=== PATIENT | female | born 1990 | race Caucasian/White ===

== ENCOUNTER 2017-06-03 16:03 | Emergency (ER) | payer BC, MEDICAID ==
[~2017-06-03] VITALS: Ht 170.2 cm; Wt 57.7 kg
--- NOTE | 2017-06-03 16:46 | REP ---
SOFT TISSUES NECK: AP and lateral views of the soft tissues of the neck are performed. There is a thin linear metallic object in the soft tissues of the inferior left neck. This object measures about 8 mm in length. It is at about the T1 level. Visualized osseous structures are unremarkable. The airway is widely patent. There is no prevertebral soft tissue swelling. The epiglottis is normal. IMPRESSION: Thin linear metallic object in the soft tissues of the inferior left neck. Signed by Luis Marte MD 06/03/2017 07:24 P
[2017-06-03] MEDS ORDERED: ISOVUE-370 76% 100ML VIAL (Q9967) As Ordered ONE (17:30)
--- NOTE | 2017-06-03 18:50 | REPUSA ---
CT of the soft tissues of the neck with contrast Clinical history: foreign body. Technique: Multiple axial CT images were obtained from the base of the skull to the upper thorax afte r administration of nonionic intravenous contrast. Coronal and sagittal reconstructions were also obt ained. Findings: The visualized paranasal sinuses are clear. The pterygopalatine fossa, pterygoid plates and pterygoid muscles are unremarkable. The mucosa of the naso- and oropharynx appears unremarkable. The hypopharynx and larynx show no pathology. The visualized osseous structures are intact. The airway i s patent. No focal enhancing mass is appreciated. There is no evidence of lymphadenopathy. The thyroi d gland appears unremarkable. The superficial soft tissues are unremarkable. The vascular structures demonstrate normal caliber and contour. Impression: Unremarkable CT examination of the soft tissues of the neck. There is no evidence of a ra diopaque foreign body.
--- NOTE | 2017-06-03 19:01 | ED PDOC ---
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 FB SEEN IN LEFT LATERAL NECK ON CT SCAN OF THIS PT. SARA ROBBINS PA-C Jun 03, 2017 19:01
[2017-06-03] MEDS ORDERED: CLEO300C2 PO (19:08)
[2017-06-03] MEDS ORDERED: CLINDAMYCIN 150 MG CAP PO ONE (19:15)
[2017-06-03 19:21] VITALS: BP 124/78
== END 2017-06-03 19:22 | disposition home or self-care (01) ==
LOC: M ED 16:03
DX: S10.95XA Superficial foreign body of unspecified part of neck, initial encounter (principal); W46.0XXA Contact with hypodermic needle, initial encounter; Y92.89 Other specified places as the place of occurrence of the external cause; Y93.89 Activity, other specified; Y99.8 Other external cause status; F11.129 Opioid abuse with intoxication, unspecified
CPT/HCPCS: 70360; 70491; 99283; Q9967

== ENCOUNTER 2017-09-09 00:57 | Emergency (ER) | payer MEDICAID | END 2017-09-09 01:08 | disposition home or self-care (01) | LOC: M ED 01:08 | DX: F19.10 Other psychoactive substance abuse, uncomplicated (principal); F17.210 Nicotine dependence, cigarettes, uncomplicated | CPT/HCPCS: 99284 ==

== ENCOUNTER 2019-03-12 17:27 | Inpatient (IN) | payer MEDICAID, OTHER, SELFPAY ==
[~2019-03-12] VITALS: Ht 170.2 cm; Wt 60.0 kg
[~2019-03-12 17:27] MED LIST: CLEO300C2 PO; NALT50TA4 PO
[2019-03-12] MEDS ORDERED: ACETAMINOPHEN TAB 650MG DOSE (2X325MG) PO ONE (18:30)
[2019-03-12 19:26] LABS: BASO % 0.2 % (0.0-1.0); HEMATOCRIT 33.5 % (36.0-47.0); HEMOGLOBIN 11.5 g/dl (12.0-15.5); LYMPH # 0.8 10^3/uL (1.5-6.5); MEAN CORPUSCULAR HEMOGLOBIN 31.3 pg (27.0-33.0); MEAN CORPUSCULAR HGB CONC 34.3 g/dl (32.0-36.5); MEAN CORPUSCULAR VOLUME 91.3 fl (80.0-96.0); MONO % 11.4 % (0.0-5.0); NEUTROPHILS # 6.7 10^3/uL (1.8-7.7); NEUTROPHILS % 78.9 % (36.0-66.0); PLATELET COUNT, AUTOMATED 170 10^3/uL (150-450); RED BLOOD COUNT 3.67 10^6/uL (4.00-5.40); WHITE BLOOD COUNT 8.5 10^3/uL (4.0-10.0)
[2019-03-12] MEDS ORDERED: KETOROLAC 30 MG/ML VIAL (J1885) IV ONE (19:45)
[2019-03-12] MEDS ORDERED: NS IV ONE (19:45)
[2019-03-12] MEDS ORDERED: DILUENT IV ONE (19:45)
[2019-03-12 19:46] LABS: HCG, SERUM QUALITATIVE NEGATIVE (NEGATIVE)
[2019-03-12 19:47] LABS: ALT/SGPT 41 U/L (12-78); BILIRUBIN,DIRECT 0.2 MG/DL (0.0-0.2); BILIRUBIN,TOTAL 0.4 MG/DL (0.2-1.0); BLOOD UREA NITROGEN 9 MG/DL (7-18); CALCIUM LEVEL 8.6 MG/DL (8.5-10.1); CARBON DIOXIDE LEVEL 25 MEQ/L (21-32); CHLORIDE LEVEL 98 MEQ/L (98-107); CREATININE FOR GFR 0.75 MG/DL (0.55-1.30); GLOMERULAR FILTRATION RATE > 60.0 (>60); GLUCOSE, FASTING 116 MG/DL (70-100); POTASSIUM SERUM 3.9 MEQ/L (3.5-5.1); SODIUM LEVEL 131 MEQ/L (136-145); TOTAL PROTEIN 6.5 GM/DL (6.4-8.2)
[2019-03-12 19:48] LABS: ALBUMIN 2.9 GM/DL (3.2-5.2); LIPASE 131 U/L (73-393)
[2019-03-12] MEDS ORDERED: ISOVUE-370 76% 100ML VIAL (Q9967) As Ordered ONE (20:41)
--- NOTE | 2019-03-12 21:19 | REP ---
Clinical: Fever. Technique: PA and lateral. Comparison: None. Findings: Mediastinum and cardiac silhouette are normal. Lung sanchez demonstrate coarsened interstitial markings with superimposed scattered bilateral alveolar infiltrates. No effusion. No pneumothorax. Skeletal structures intact. Impression: Scattered alveolar infiltrates are suspected. Electronically Signed by Fabio Crum MD 03/12/2019 09:10 P
[2019-03-12] MEDS: PIPERACILLIN/TAZOBACTAM SOD 3.375 GM in D5W MINI-BAG PLUS 50 ML IV ONE (22:00)
[2019-03-12] MEDS ORDERED: VANCOMYCIN HCL 1,000 MG, VIAL MATE ADAPTER 1 EACH in D5W 250 ML IV ONE (22:00)
--- NOTE | 2019-03-12 22:17 | ECGEPIP ---
[facility] - ED Test Date: 2019-03-12 Pat Name: KARRIE BLACK Department: Room: - Gender: Female Room Service Supervisor: aleida : 1990 Requested By: MUNIRA Wagner Order Number: [id number] Reading MD: Rolando Sandhu Measurements Intervals [place] Rate: 110 P: 34 VA: 120 QRS: 97 QRSD: 94 T: 45 QT: 291 QTc: 395 Interpretive Statements SINUS TACHYCARDIA RIGHT AXIS DEVIATION INCOMPLETE RIGHT BUNDLE BRANCH BLOCK NO PRIORS FOR COMPARISON Electronically Signed on 03-12-2019 22:16:58 EDT by Rolando Sandhu
--- NOTE | 2019-03-12 23:02 | REPVR ---
EXAM: CT Angiography Chest With Contrast EXAM DATE/TIME: 03/12/2019 10:00 PM CLINICAL HISTORY: 28 years old, female; Chest pain; Additional info: Chest pain, fever TECHNIQUE: Imaging protocol: Axial computed tomographic angiography images of the chest with intravenous contrast using CT angiography protocol. Coronal and sagittal reformatted images were created and reviewed. 3D rendering: MIP reconstructed images were created and reviewed. Radiation optimization: All CT scans at this facility use at least one of these dose optimization techniques: automated exposure control; mA and/or kV adjustment per patient size (includes targeted exams where dose is matched to clinical indication); or iterative reconstruction. Contrast material: ISOVUE 370; Contrast volume: 75 ml; Contrast route: IV; COMPARISON: CR Chest, 2 view PA, Lat 03/12/2019 8:12 PM FINDINGS: Pulmonary arteries: The main pulmonary artery measures 27 mm. No pulmonary embolism is identified. Aorta: The ascending thoracic aorta measures 29 mm. Lungs: Interstitial prominence and minimal fibro-atelectatic change with patchy areas of infiltrate and consolidation. Pleural space: Mild right pleural effusion. Heart: Unremarkable. No cardiomegaly. No pericardial effusion. Liver: Probable hepatomegaly. Lymph nodes: Unremarkable. No enlarged lymph nodes. Bones/joints: Unremarkable. No acute fracture. Soft tissues: Unremarkable. IMPRESSION: 1. Interstitial prominence with minimal fibro-atelectatic change and patchy areas of infiltrate and focal consolidation consistent with pneumonia. 2. Mild right pleural effusion. 3. Probable hepatomegaly. 4. Otherwise negative CTA chest. No pulmonary embolism is identified. Electronically signed by: Brayden Montoya On 03/12/2019 23:02:03 PM
[2019-03-12 23:38] LABS: CPK CREATINE PHOSPHOKINASE 41 U/L (26-192); TROPONIN I < 0.02 NG/ML (< 0.10)
--- NOTE | 2019-03-12 23:41 | HPEPDOC ---
[facility] Medical History & Physical Date of Admission Mar 12, 2019 Date of Service: Mar 12, 2019 History and Physical PCP: None CHIEF COMPLAINT: Fevers HISTORY OF PRESENT ILLNESS: Patient is a 28-year-old female supplemented IV drug abuser and having fevers and chest pressure and pain for the last several days associated with some cough. Generally she is seeing friends of her when they look like this and began to get like this. She doesn't abuse ethanol 204. Her last IV drug injection was 70 and was more active and very active in recent weeks. Otherwise patient denies weight loss, hair loss, headache, visual changes, nausea, vomiting, diarrhea, abdominal pain, muscle aches, worsening ar thritis, change in mood PAST MEDICAL HISTORY: 1. IV drug abuse 2. Polysubstance abuse. 3. Tobacco abuse. HOME MEDICATIONS: Please see below. ALLERGIES: Please see below PAST SURGICAL HISTORY: 1. 4. 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 ETOH: Denies, Illicit drug use: Regular injections and pills previously attempted rehabilitat ion was clean for 6 months inpatient in 2 months outpatient, Tattoos done unprofessionally: Denies, CODE STATUS: Full code FAMILY HISTORY:Reviewed and noncontributory REVIEW OF SYSTEMS: 10 systems reviewed and negative other than HPI PHYSICAL EXAMINATION: VITAL SIGNS: Temperature 103.9, pulse 99, respiratory rate 16, blood pressure 90 a 57, pulse oximetry 95% on room air. GENERAL: Pleasant slim femalesitting up in bed awake alert oriented speaking in complete sentences no acute distress HEENT: Dry mucous membranes no elevation and CVP CARDIOVASCULAR: S1 S2 regular soft systolic murmur appreciated she is mildly tachycardic at the time of my exam. RESPIRATORY: Clear to auscultation bilaterally. ABDOMINAL: Bowel sounds present abdomen soft and nontender EXTREMITIES: No clubbing cyanosis or edema, numerous track mcmanus in injection sites in the left before meals right before meals left and right dorsum of hands and forearms none in the neck or feet NEUROLOGICAL: Spontaneously moves all 4 extremities cranial 2 through 12 grossly intact no gross focal deficits appreciated PSYCHOLOGICAL: Appropriate, flat LABORATORY DATA: See below. MICROBIOLOGY: Please see below. IMAGING: Chest x-ray:Scattered alveolar infiltrates are suspected. CT angiogram:1. Interstitial prominence with minimal fibro-atelectatic change and patchy areas of infiltrate and focal consolidation consistent with pneumonia. 2. Mild right pleural effusion. 3. Probable hepatomegaly. 4. Otherwise negative CTA chest. No pulmonary embolism is identified. ASSESSMENT & PLAN: This is a 28-year-old female with fevers and possible right- sided pneumonia questionable endocarditis. PROBLEMS: 1. Pneumonia: Patient has fever cough chest pain and imaging findings consistent with this. I'll provide her with vancomycin and ceftriaxone. My suspicion for atypicals as less, a provider was concerned for possible infective endocarditis with her history of ongoing IV drug abuse and as such a stat echocardiogram was checked. I do not have any official read at this time there was concern that the tricuspid but may have some . vegetation. Vancomycin and ceftriaxone should be an appropriate empiric coverage regimen as well. 3 blood cultures have been drawn. I will check a pro-calcitonin morning labs patient should likely have repeat blood culture checked tomorrow. If echocardiogram is positive could consider inpatient cardiology consultation. 2. Hypovolemic hyponatremia: Patient is very slim looks is clinically dry with gentle IV fluids and recheck in a.m. 3. Abnormal liver function tests: She does have an elevated AST the etiology is not immediately clear we'll trend 4. Anemia: We'll send workup in a.m. labs. 5.Suicidal ideation: After leaving the IV by nursing staff that the patient did express some suicidal ideation shortly thereafter. I'll place her on a one-to-one sitter could consider inpatient psychiatry consultation when medically cleared 6. Polysubstance abuse and IV drug abuse: He is consultation she would benefit from addiction services DVT PROPHYLAXIS: Lovenox DISPOSITION: Admitted to [facility] with remote telemetry inpatient status Vital Signs Vital Signs Date Time Temp Pulse Resp B/P (MAP) Pulse Ox O2 Delivery O2 Flow Rate FiO2 03/12/19 23:22 98.9 03/12/19 23:16 83 16 98 Room Air 03/12/19 23:15 115/73 (87) Laboratory Data Labs 24H Laboratory Tests 2 03/12/19 19:13: Immature Granulocyte % (Auto) 0.5, White Blood Count 8.5, Red Blood Count 3.67L, Hemoglobin 11.5L, Hematocrit 33.5L, Mean Corpuscular Volume 91.3, Mean Corpuscular Hemoglobin 31.3, Mean Corpuscular Hemoglobin Concent 34.3, Red Cell Distribution Width 12.9, Platelet Count 170, Neutrophils (%) (Auto) 78.9H, Lymphocytes (%) (Auto) 9.0L, Monocytes (%) (Auto) 11.4H, Eosinophils (%) (Auto) 0.0, Basophils (%) (Auto) 0.2, Neutrophils # (Auto) 6.7, Lymphocytes # (Auto) 0.8L, Monocytes # (Auto) 1.0H, Eosinophils # (Auto) 0.0, Basophils # (Auto) 0.0, Nucleated Red Blood Cells % (auto) 0.0, Anion Gap 8, Glomerular Filtration Rate > 60.0, Lactic Acid Level 1.5, Calcium Level 8.6, Aspartate Amino Transf (AST/SGOT) 49H, Alanine Aminotransferase (ALT/SGPT) 41, Alkaline Phosphatase 86, Total Bilirubin 0.4, Direct Bilirubin 0.2, C-Reactive Protein, Quantitative 22.20H, Total Protein 6.5, Albumin 2.9L, Albumin/Globulin Ratio 0.81L, Lipase 131, Human Chorionic Gonadotropin, Qual NEGATIVE 03/12/19 20:05: Urine Color YELLOW, Urine Appearance HAZY, Urine pH 6.0, Urine Specific [place] 1.023, Urine Protein 2+H, Urine Glucose (UA) NEGATIVE, Urine Ketones NEGATIVE, Urine Blood NEGATIVE, Urine Nitrite NEGATIVE, Urine Bilirubin NEGATIVE, Urine Urobilinogen 0.2, Urine Leukocyte Esterase NEGATIVE, Urine WBC (Auto) 5H, Urine RBC (Auto) 3, Urine Hyaline Casts (Auto) 0, Urine Bacteria (Auto) NEGATIVE, Urine Squamous Epithelial Cells 2, Urine Mucus (Auto) SMALL, Urine Sperm (Auto) CBC/BMP Laboratory Tests 03/12/19 19:13 Red Blood Count 3.67 L, Mean Corpuscular Volume 91.3, Mean Corpuscular Hemoglobin 31.3, Mean Corpuscular Hemoglobin Concent 34.3, Red Cell Distribution Width 12.9, Neutrophils (%) (Auto) 78.9 H, Lymphocytes (%) (Auto) 9.0 L, Monocytes (%) (Auto) 11.4 H, Eosinophils (%) (Auto) 0.0, Basophils (%) (Auto) 0.2, Neutrophils # (Auto) 6.7, Lymphocytes # (Auto) 0.8 L, Monocytes # (Auto) 1.0 H, Eosinophils # (Auto) 0.0, Basophils # (Auto) 0.0 Microbiology Microbiology 03/12/19 Blood Culture, Received Pending 03/12/19 Blood Culture, Received Pending 03/12/19 Blood Culture, Received Pending 03/12/19 Respiratory Virus Panel (PCR) (NISA) - Final, Complete Home Medications No Active Prescriptions or Reported Meds Allergies Coded Allergies: No Known Allergies (Unverified , 06/03/17) A-FIB/CHADSVASC A-FIB History Current/History of A-Fib/PAF?: No ARIANA CHAUHAN MD Mar 12, 2019 23:41
[2019-03-12 23:48] LABS: ERYTHROCYTE SEDIMENTATION RATE 65 mm/hr (0-20)
[2019-03-13] VITALS (9 sets, daily range): BP systolic 97–132; BP diastolic 53–82
[2019-03-13] MEDS: PIPERACILLIN/TAZOBACTAM SOD 3.375 GM in D5W MINI-BAG PLUS 50 ML IV ONE (00:04)
--- NOTE | 2019-03-13 00:40 | PHACANCOPD ---
PHARMACY VANCOMYCIN DOSING Pt Demographics Demographics Patient Age:28 , Weight:52.270 , Gender: female Adjusted Body Weight Date: 03/13/19, Adjusted Body Weight: Kg Events Past 24 Hours Events Past 24 Hours: NO: Dialysis, Diuretic Therapy, Change in CrCl, Fever, Elevation in WBC, Pending Diagnostics, Pending Procedures, Other Vancomycin Vancomycin Target Ranges: 15-20 mcg/ml Vancomycin Load Y/N: No Load Dose Date Time Vancomycin Load Dose: Date: Time: Vancomycin Dose Date: 03/13/19. Current Vancomycin Dose: [1000mg q8h] Intermittent Dosing?: No Labs Labs Item Value Date Time White Blood Count 8.5 10^3/uL 03/12/191912 Creatinine 0.75 MG/DL 03/12/191912 Glomerular Filtration Rate > 60.0 03/12/191912 Vital Signs Label Value Date Time Patient Temperature 98.9 degrees F 03/12/19 2322 Temperature Source Oral 03/12/19 2322 Micro Microbiology 03/12/19 Blood Culture, Received Pending 03/12/19 Blood Culture, Received Pending 03/12/19 Blood Culture, Received Pending 03/12/19 Respiratory Virus Panel (PCR) (NISA) - Final, Complete Creatinine Clearance Date:03/13/19. Creatinine Clearance: [~100]. Pending Labs Vancomycin trough 07-02 @2100 Assessment and Plan Maintaining Current Dose?: Yes Reason for dose change: No Dose Change Pharmacist Note Pharmacist Note Date: 03/13/19. Pharmacist note:Will monitor and make adjustments as needed. KELLY [facility] Mar 13, 2019 00:40
[2019-03-13 00:57] LABS: AMPHETAMINES LEVEL URINE NEGATIVE (NEGATIVE); BARBITURATES URINE NEGATIVE (NEGATIVE); BENZODIAZEPINES URINE NEGATIVE (NEGATIVE); CANNABINOIDS URINE NEGATIVE (NEGATIVE); COCAINE METABOLITE URINE NEGATIVE (NEGATIVE); METHADONE URINE NEGATIVE (NEGATIVE); OPIATES URINE NEGATIVE (NEGATIVE); PHENCYCLIDINE URINE NEGATIVE (NEGATIVE)
[2019-03-13] MEDS: NS 1,000 ML IV SCH ×3 (01:42→22:37)
[2019-03-13] MEDS: AZITHROMYCIN INJ 500 MG, VIAL MATE ADAPTER 1 EACH in D5W 250 ML IV SCH (01:48)
[2019-03-13] MEDS ORDERED: cloNIDine 0.1 MG TAB PO ONE (02:45)
[2019-03-13] MEDS ORDERED: oxyCODONE 5MG TAB PO PRN ×2 (02:45)
[2019-03-13] MEDS ORDERED: METHADONE 10 MG TAB (S0109) PO ONE ×2 (03:00→20:15)
[2019-03-13] MEDS: cefTRIAXone SOD 1 GM in D5W MINI-BAG PLUS 50 ML IV SCH (03:06)
[2019-03-13] MEDS ORDERED: ONDANSETRON 4MG/2ML VIAL (J2405) IV PRN (03:15)
[2019-03-13] MEDS ORDERED: LR 1,000 ML IV ONE (05:00)
[2019-03-13 05:35] LABS: HEMATOCRIT 29.2 % (36.0-47.0); MEAN CORPUSCULAR HEMOGLOBIN 31.8 pg (27.0-33.0); MEAN CORPUSCULAR HGB CONC 34.2 g/dl (32.0-36.5); PLATELET COUNT, AUTOMATED 146 10^3/uL (150-450); RED BLOOD COUNT 3.14 10^6/uL (4.00-5.40); WHITE BLOOD COUNT 8.2 10^3/uL (4.0-10.0)
[2019-03-13] MEDS: VANCOMYCIN HCL 1,000 MG, VIAL MATE ADAPTER 1 EACH in D5W 250 ML IV SCH ×3 (05:44→22:38)
[2019-03-13] MEDS: ACETAMINOPHEN TAB 650MG DOSE (2X325MG) PO PRN ×2 (05:44→11:29)
[2019-03-13 06:05] LABS: ALBUMIN 2.1 GM/DL (3.2-5.2); ALT/SGPT 31 U/L (12-78); BILIRUBIN,TOTAL 0.3 MG/DL (0.2-1.0); BLOOD UREA NITROGEN 6 MG/DL (7-18); CALCIUM LEVEL 7.6 MG/DL (8.5-10.1); CARBON DIOXIDE LEVEL 21 MEQ/L (21-32); CHLORIDE LEVEL 104 MEQ/L (98-107); CREATININE FOR GFR 0.68 MG/DL (0.55-1.30); FERRITIN 235 NG/ML (8-252); GLOMERULAR FILTRATION RATE > 60.0 (>60); GLUCOSE, FASTING 112 MG/DL (70-100); IRON (FE) 13 UG/DL (50-170); POTASSIUM SERUM 3.7 MEQ/L (3.5-5.1); SODIUM LEVEL 133 MEQ/L (136-145); TOTAL IRON BINDING CAPACITY 187 UG/DL (250-450); TOTAL PROTEIN 5.6 GM/DL (6.4-8.2)
--- NOTE | 2019-03-13 06:33 | ECHO ---
DATE OF PROCEDURE: 03/12/2019 AGE: 28 GENDER: Female REFERRING PHYSICIAN: Magdy Lara. HEIGHT: 67 inches. WEIGHT: 115 pounds. BODY SURFACE AREA: 1.6 m2 INPATIENT: Emergency room. INDICATION: Heart murmur in patient with IV drug user and fever. MEASUREMENTS: 2D MEASUREMENTS: RV - 2.7 cm LV- 4.5 cm Septum - 0.8 cm Posterior wall - 0.8 cm Aortic root - 2.9 cm LA - 3.1 cm LVEF - 75% DOPPLER MEASUREMENTS: AV - 1.8 m/s LVOT - 1.4 m/s LVOT diameter - 1.8 cm MV-E: 130 A: 64 EA ratio 2.1 Early mitral deacceleration time - 194 ms E-prime - 14.8 A-prime - 5.87 E/E prime ratio - 9 PV - 1.4 m/s Pulmonary artery acceleration time - 120 ms RVSP - 1936 mmHg IVC - 2.1 cm COMMENTS: Normal sinus rhythm without intraventricular conduction disturbance. M-mode and two-dimensional echocardiography was performed with pulsed, continuous wave, color flow and tissue Doppler studies. Normal left ventricular size, wall thickness and hyperkinetic wall motion. Normal left atrial size and Doppler assessment of LV diastolic function and estimated mean left atrial pressure. Normal right heart chamber sizes with hyperkinetic right ventricular free wall motion but Doppler evidence of mild pulmonary hypertension. Normal IVC size and collapse against an elevated central venous pressure. Normal appearing and functioning mitral and aortic valvular structures. Appears to be localized thickening attached to the anterior or posterior tricuspid valve leaflets with associated mild - moderate insufficiency suspicious for a vegetation. No other separate intracardiac mass or pericardial effusion. Preliminary report of this study has been related to Dr. Lara in the emergency room. [facility]
[2019-03-13] MEDS: ENOXAPARIN 40 MG/0.4 ML SYRINGE (J1650) SC SCH (09:00)
[2019-03-13] MEDS ORDERED: KETOROLAC 30 MG/ML VIAL (J1885) IV ONE (16:45)
[2019-03-13] MEDS ORDERED: MORPHINE 4 MG/ML 1ML VIAL/SYRINGE (J2270) IV PRN ×2 (18:00→20:15)
[2019-03-13] MEDS: CALCIUM CARBONATE 500 MG CHEW U/D PO PRN (18:28)
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
--- NOTE | 2019-03-13 20:13 | IPNPDOC ---
Date Seen The patient was seen on 03/13/19. Progress Note SUBJECTIVE: Patient reports intermittent generalized myalgias and diffuse pains including back on the R. side as well as knee/shoulder. Seen by Psychiatry and 1:1 observation discontinued. Denies any suicidal ideation at this time. Overall reports feeling much better but still achy and unwell. Persistent intermittent fevers OBJECTIVE PHYSICAL EXAMINATION: VITAL SIGNS: Please see below. General: Mild distress, alert, slightly tremulous Eyes: Normal sclera, EOMI, MOMO HENT: Atraumatic, neck supple, moist mucous membranes Cardiovascular: Normal rate, normal rhythm. Pulmonary: Clear to auscultation b/l GI: Soft, nontender, nondistended MSK: Intermittent diffuse muscle aches, tender R. knee, back, leg Skin: Warm and dry Neuro: CN grossly intact. No focal deficits. Strengths equal b/l. Psych: oriented x 3 LABORATORY DATA, IMAGING STUDIES, MICROBIOLOGY: Please see below. ASSESSMENT AND PLAN: 1. Endocarditis - Intermittent fevers, elevated ESR in setting of active IVDU with + blood c ultures. - Gram + cocci in 3 blood cultures at this time. - On Rocephin, Vancomycin and Azithromycin- also being treated for PNA. - ECHO noted with mass highly suggestive of vegetations on anterior and posterior tricuspid valve. - ID consulted. - Given IV drug use, may not be a candidate for PICC line placement for IV abx, likely will require a prolong inpatient course. 2. Pneumonia - On Azithromycin and Rocephin at this time. - CT chest with patchy areas of infiltrate and focal consolidation. 3. Hyponatremia - Hypovolemic. - c/w IVF, Na trending up. 4. Polysubstance abuse - IV heroin recent use. Started on methadone to prevent withdraw. - Can taper slowly. will start with 15 mg daily. - Spoke with Psych Dr. Humphreys. - Will refer to Addiction clinic post discharge. - Will monitor EKG, cautious of QT prolongation with methadone and Azithromycin/Zofran. VS, I&O, 24H, Fishbone Vital Signs/I&O Vital Signs Date Time Temp Pulse Resp B/P (MAP) Pulse Ox O2 Delivery O2 Flow Rate FiO2 03/13/19 17:45 101.0 03/13/19 16:00 97 18 132/82 (99) 100 03/13/19 00:01 Room Air I&O- Last 24 Hours up to 6 AM 03/13/19 06:00 Intake Total 4450 ml Output Total 480 ml Balance 3970 ml Laboratory Data 24H LABS Laboratory Tests 2 03/12/19 20:05: Urine Color YELLOW, Urine Appearance HAZY, Urine pH 6.0, Urine Specific [place] 1.023, Urine Protein 2+H, Urine Glucose (UA) NEGATIVE, Urine Ketones NEGATIVE, Urine Blood NEGATIVE, Urine Nitrite NEGATIVE, Urine Bilirubin NEGATIVE, Urine Urobilinogen 0.2, Urine Leukocyte Esterase NEGATIVE, Urine WBC (Auto) 5H, Urine RBC (Auto) 3, Urine Hyaline Casts (Auto) 0, Urine Bacteria (Auto) NEGATIVE, Urine Squamous Epithelial Cells 2, Urine Mucus (Auto) SMALL, Urine Sperm (Auto) 03/13/19 00:31: Urine Amphetamines Screen NEGATIVE, Urine Benzodiazepines Screen NEGATIVE, Urine Opiates Screen NEGATIVE, Urine Methadone Screen NEGATIVE, Urine Barbiturates Screen NEGATIVE, Urine Phencyclidine Screen NEGATIVE, Urine Cocaine Metabolite Screen NEGATIVE, Urine Cannabinoids Screen NEGATIVE 03/13/19 05:22: Reticulocyte # (auto) 18.8, Nucleated Red Blood Cells % (auto) 0.0, Percent Reticulocyte Count 0.6, Reticulocyte Hemoglobin Equivalent 24.8, Anion Gap 8, Glomerular Filtration Rate > 60.0, Blood Urea Nitrogen 6L, Creatinine 0.68, Sodium Level 133L, Potassium Level 3.7, Chloride Level 104, Carbon Dioxide Level 21, Calcium Level 7.6L, Aspartate Amino Transf (AST/SGOT) 35, Alanine Aminotransferase (ALT/SGPT) 31, Alkaline Phosphatase 70, Total Bilirubin 0.3, Total Protein 5.6L, Albumin 2.1#L, Iron Level 13L, Total Iron Binding Capacity 187L, Transferrin % Saturation 7.0L, Ferritin 235, Albumin/Globulin Ratio 0.60L, Procalcitonin 1.36 CBC/BMP Laboratory Tests 03/13/19 05:22 Red Blood Count 3.14 L, Mean Corpuscular Volume 93.0, Mean Corpuscular Hemoglobin 31.8, Mean Corpuscular Hemoglobin Concent 34.2, Red Cell Distribution Width 13.1, Calcium Level 7.6 L, Aspartate Amino Transf (AST/SGOT) 35, Alanine Aminotransferase (ALT/SGPT) 31, Alkaline Phosphatase 70, Total Bilirubin 0.3, Total Protein 5.6 L, Albumin 2.1 #L Microbiology Microbiology 03/12/19 Blood Culture - Preliminary, Resulted 03/12/19 Blood Culture - Preliminary, Resulted 03/12/19 Blood Culture - Preliminary, Resulted 03/12/19 Respiratory Virus Panel (PCR) ([facility]) - Final, Complete ORIANA BURNETT MD Mar 13, 2019 20:12
[2019-03-13] MEDS ORDERED: PILL CUTTER 1 EACH XX PRN (20:30)
--- NOTE | 2019-03-13 21:40 | PHACANCOPD ---
PHARMACY VANCOMYCIN DOSING Pt Demographics Demographics Patient Age:28 , Weight:55.800 , Gender: female Adjusted Body Weight Date: 03/13/19, Adjusted Body Weight: Kg Events Past 24 Hours Events Past 24 Hours: NO: Dialysis, Diuretic Therapy, Change in CrCl, Fever, Elevation in WBC, Pending Diagnostics, Pending Procedures, Other Vancomycin Vancomycin Target Ranges: 15-20 mcg/ml Vancomycin Load Y/N: No Load Dose Date Time Vancomycin Load Dose: Date: Time: Vancomycin Dose Date: 03/13/19. Current Vancomycin Dose: [1000mg q8h] Intermittent Dosing?: No Labs Labs Item Value Date Time White Blood Count 8.2 10^3/uL 03/13/19521 Glomerular Filtration Rate > 60.0 03/13/19521 Creatinine 0.68 MG/DL 03/13/19521 Vancomycin Level Trough 9.0 UG/ML L 03/13/192053 Vital Signs Label Value Date Time Patient Temperature 99.9 degrees F 03/13/191999 Temperature Source Temporal 03/13/191999 Micro Microbiology 03/12/19 Blood Culture - Preliminary, Resulted 03/12/19 Blood Culture - Preliminary, Resulted 03/12/19 Blood Culture - Preliminary, Resulted 03/12/19 Respiratory Virus Panel (PCR) ([facility]) - Final, Complete Creatinine Clearance Date:03/13/19. Creatinine Clearance: [~100]. Pending Labs Vancomycin trough 07-03 @1700 Assessment and Plan Maintaining Current Dose?: No Reason for dose change: Trough too low Pharmacist Note Pharmacist Note Date: 03/13/19. Pharmacist note:Trough of 9 is below target range. Dose increased to 1000mg q6h. Will continue to monitor and make adjustments as needed. KELLY DASH PHARMACY Mar 13, 2019 21:39
[2019-03-13] MEDS ORDERED: ACETAMINOPHEN 500 MG TAB PO ONE (23:30)
[2019-03-14] MEDS: AZITHROMYCIN INJ 500 MG, VIAL MATE ADAPTER 1 EACH in D5W 250 ML IV SCH (02:47)
[2019-03-14] MEDS: cefTRIAXone SOD 1 GM in D5W MINI-BAG PLUS 50 ML IV SCH (03:56)
[2019-03-14 04:00] VITALS: BP 103/63
[2019-03-14] MEDS ORDERED: VANCOMYCIN HCL 1,000 MG, VIAL MATE ADAPTER 1 EACH in D5W 250 ML IV SCH (06:00)
[2019-03-14 07:16] LABS: HEMATOCRIT 31.9 % (36.0-47.0); HEMOGLOBIN 10.8 g/dl (12.0-15.5); MEAN CORPUSCULAR HEMOGLOBIN 31.7 pg (27.0-33.0); MEAN CORPUSCULAR HGB CONC 33.9 g/dl (32.0-36.5); MEAN CORPUSCULAR VOLUME 93.5 fl (80.0-96.0); PLATELET COUNT, AUTOMATED 195 10^3/uL (150-450); RED BLOOD COUNT 3.41 10^6/uL (4.00-5.40); WHITE BLOOD COUNT 9.8 10^3/uL (4.0-10.0)
[2019-03-14 07:43] LABS: ALBUMIN 1.9 GM/DL (3.2-5.2); ALT/SGPT 40 U/L (12-78); BILIRUBIN,TOTAL 0.4 MG/DL (0.2-1.0); BLOOD UREA NITROGEN 7 MG/DL (7-18); CALCIUM LEVEL 7.7 MG/DL (8.5-10.1); CARBON DIOXIDE LEVEL 23 MEQ/L (21-32); CHLORIDE LEVEL 108 MEQ/L (98-107); CREATININE FOR GFR 0.72 MG/DL (0.55-1.30); GLOMERULAR FILTRATION RATE > 60.0 (>60); GLUCOSE, FASTING 82 MG/DL (70-100); POTASSIUM SERUM 3.7 MEQ/L (3.5-5.1); SODIUM LEVEL 138 MEQ/L (136-145); TOTAL PROTEIN 5.7 GM/DL (6.4-8.2)
[2019-03-14 08:00] VITALS: BP 104/59
[2019-03-14] MEDS: METHADONE 10 MG TAB (S0109) PO SCH (08:35)
[2019-03-14] MEDS: ENOXAPARIN 40 MG/0.4 ML SYRINGE (J1650) SC SCH (08:36)
[2019-03-14 12:00] VITALS: BP 116/72
[2019-03-14] MEDS: VANCOMYCIN HCL 1,000 MG, VIAL MATE ADAPTER 1 EACH in D5W 250 ML IV SCH ×2 (12:32→18:13)
[2019-03-14] MEDS: NS 1,000 ML IV SCH (12:34)
[2019-03-14 14:27] VITALS: BP 131/78
[2019-03-14] MEDS: IBUPROFEN 600 MG TAB PO PRN (17:43)
[2019-03-14 18:00] VITALS: BP 129/73
[2019-03-14] MEDS ORDERED: DOCUSATE SODIUM 100 MG CAP PO PRN (19:15)
--- NOTE | 2019-03-14 19:17 | IPNPDOC ---
Date Seen The patient was seen on 03/14/19. Progress Note SUBJECTIVE: Patient reports feeling better today and appear to be in less distress. Still tremulous but able to speak more clearly. Still febrile intermittently, to get Ibuprofen given avoidance of Tylenol in setting of Hepatitis C. OBJECTIVE PHYSICAL EXAMINATION: VITAL SIGNS: Please see below. General: Mild distress, alert, slightly tremulous Eyes: Normal sclera, EOMI, MOMO HENT: Atraumatic, neck supple, moist mucous membranes Cardiovascular: Normal rate, normal rhythm. Pulmonary: Clear to auscultation b/l GI: Soft, nontender, nondistended MSK: Intermittent diffuse muscle aches, tender R. knee, back, leg Skin: Warm and dry Neuro: CN grossly intact. No focal deficits. Strengths equal b/l. Psych: oriented x 3 LABORATORY DATA, IMAGING STUDIES, MICROBIOLOGY: Please see below. ASSESSMENT AND PLAN: 1. Endocarditis - Intermittent fevers, elevated ESR in setting of active IVDU with + blood cultures. - staph aureus in 3 blood cultures at this time. - On Rocephin, Vancomycin and Azithromycin- also being treated for PNA. - ECHO noted with mass highly suggestive of vegetations on anterior and posterior tricuspid valve. - ID consulted. - Given IV drug use, may not be a candidate for PICC line placement for IV abx, likely will require a prolong inpatient course. 2. Pneumonia - On Azithromycin and Rocephin at this time. - CT chest with patchy areas of infiltrate and focal consolidation. 3. Hyponatremia - Hypovolemic. - c/w IVF, Na trending up. 4. Polysubstance abuse - IV heroin recent use. Started on methadone to prevent withdraw. - Can taper slowly. will start with 15 mg daily. - Spoke with Psych Dr. Humphreys. - Will refer to Addiction clinic post discharge. - Will monitor EKG, cautious of QT prolongation with methadone and Azithromycin/Zofran. 5. hepatitis C - not treated due to active IV drug use. - Counseled on cessation. Stated that she will stop using all drugs post discharge. DVT ppx: SCDs Code status: Full code VS, I&O, 24H, Fishbone Vital Signs/I&O Vital Signs Date Time Temp Pulse Resp B/P (MAP) Pulse Ox O2 Delivery O2 Flow Rate FiO2 03/14/19 18:58 100.2 03/14/19 18:00 106 20 129/73 (91) 90 03/13/19 00:01 Room Air I&O- Last 24 Hours up to 6 AM 03/14/19 06:00 Intake Total 4225 ml Output Total 3500 ml Balance 725 ml Laboratory Data 24H LABS Laboratory Tests 2 03/13/19 20:54: Vancomycin Level Trough 9.0L 03/14/19 06:59: Nucleated Red Blood Cells % (auto) 0.0, Anion Gap 7L, Glomerular Filtration Rate > 60.0, Blood Urea Nitrogen 7, Creatinine 0.72, Sodium Level 138, Potassium Level 3.7, Chloride Level 108H, Carbon Dioxide Level 23, Calcium Level 7.7L, Aspartate Amino Transf (AST/SGOT) 55H, Alanine Aminotransferase (ALT/SGPT) 40, Alkaline Phosphatase 97, Total Bilirubin 0.4, Total Protein 5.7L, Albumin 1.9L, Albumin/Globulin Ratio 0.50L 03/14/19 17:28: Vancomycin Level Trough 15.5 CBC/BMP Laboratory Tests 03/14/19 06:59 Red Blood Count 3.41 L, Mean Corpuscular Volume 93.5, Mean Corpuscular Hemoglobin 31.7, Mean Corpuscular Hemoglobin Concent 33.9, Red Cell Distribution Width 13.5, Calcium Level 7.7 L, Aspartate Amino Transf (AST/SGOT) 55 H, Alanine Aminotransferase (ALT/SGPT) 40, Alkaline Phosphatase 97, Total Bilirubin 0.4, Total Protein 5.7 L, Albumin 1.9 L Microbiology Microbiology 03/12/19 Blood Culture - Preliminary, Resulted Staphylococcus Aureus 03/12/19 Blood Culture - Preliminary, Resulted Staphylococcus Aureus 03/12/19 Blood Culture - Preliminary, Resulted Staphylococcus Aureus 03/12/19 Respiratory Virus Panel (PCR) ([facility]) - Final, Complete ORIANA BURNETT MD Mar 14, 2019 19:17
[2019-03-14 21:23] LABS: HIV 1&2 SCREEN CENTAUR NEGATIVE (NEGATIVE)
[2019-03-14 22:00] VITALS: BP_SYST 117; BP_SYST 148; BP_DIAS 71; BP_DIAS 73
[2019-03-15] VITALS (7 sets, daily range): BP systolic 111–136; BP diastolic 65–85
[2019-03-15] MEDS: VANCOMYCIN HCL 1,000 MG, VIAL MATE ADAPTER 1 EACH in D5W 250 ML IV SCH ×4 (00:07→17:43)
[2019-03-15] MEDS: AZITHROMYCIN INJ 500 MG, VIAL MATE ADAPTER 1 EACH in D5W 250 ML IV SCH (02:07)
[2019-03-15] MEDS: IBUPROFEN 600 MG TAB PO PRN ×2 (03:20→12:02)
[2019-03-15] MEDS: cefTRIAXone SOD 1 GM in D5W MINI-BAG PLUS 50 ML IV SCH (04:03)
[2019-03-15] MEDS: NS 1,000 ML IV SCH (04:09)
[2019-03-15 06:31] LABS: HEMATOCRIT 30.3 % (36.0-47.0); HEMOGLOBIN 10.3 g/dl (12.0-15.5); MEAN CORPUSCULAR HEMOGLOBIN 31.6 pg (27.0-33.0); MEAN CORPUSCULAR VOLUME 92.9 fl (80.0-96.0); PLATELET COUNT, AUTOMATED 204 10^3/uL (150-450); RED BLOOD COUNT 3.26 10^6/uL (4.00-5.40); WHITE BLOOD COUNT 7.5 10^3/uL (4.0-10.0)
[2019-03-15 06:50] LABS: ALBUMIN 1.8 GM/DL (3.2-5.2); ALT/SGPT 35 U/L (12-78); BILIRUBIN,TOTAL 0.3 MG/DL (0.2-1.0); BLOOD UREA NITROGEN 5 MG/DL (7-18); CALCIUM LEVEL 7.7 MG/DL (8.5-10.1); CARBON DIOXIDE LEVEL 25 MEQ/L (21-32); CHLORIDE LEVEL 109 MEQ/L (98-107); CREATININE FOR GFR 0.55 MG/DL (0.55-1.30); GLOMERULAR FILTRATION RATE > 60.0 (>60); GLUCOSE, FASTING 100 MG/DL (70-100); SODIUM LEVEL 141 MEQ/L (136-145); TOTAL PROTEIN 5.5 GM/DL (6.4-8.2)
[2019-03-15] MEDS: METHADONE 10 MG TAB (S0109) PO SCH (08:03)
[2019-03-15] MEDS ORDERED: POTASSIUM CHLORIDE 10 MEQ SR TABLET PO ONE ×2 (08:15→11:00)
[2019-03-15] MEDS: ENOXAPARIN 40 MG/0.4 ML SYRINGE (J1650) SC SCH (08:42)
[2019-03-15] MEDS: KETOROLAC 30 MG/ML VIAL (J1885) IV PRN ×2 (13:35→19:45)
--- NOTE | 2019-03-15 14:12 | IPNPDOC ---
Date Seen The patient was seen on 03/15/19. Progress Note SUBJECTIVE: Patient still tremulous and still with intermittent episodes of myalgias/pains Fever subsided since yesterday evening. wants to avoid opiates, morphine discontinued and added toradol. OBJECTIVE PHYSICAL EXAMINATION: VITAL SIGNS: Please see below. General: Mild distress, alert, slightly tremulous Eyes: Normal sclera, EOMI, MOMO HENT: Atraumatic, neck supple, moist mucous membranes Cardiovascular: Normal rate, normal rhythm. Pulmonary: Clear to auscultation b/l GI: Soft, nontender, nondistended MSK: Intermittent diffuse muscle aches, tender R. knee, back, leg Skin: Warm and dry Neuro: CN grossly intact. No focal deficits. Strengths equal b/l. Psych: oriented x 3 LABORATORY DATA, IMAGING STUDIES, MICROBIOLOGY: Please see below. ASSESSMENT AND PLAN: 1. Endocarditis - Intermittent fevers, elevated ESR in setting of active IVDU with + blood cultures. - MRSA in 3 blood cultures. - On Rocephin, Vancomycin and Azithromycin- also being treated for PNA. - ECHO noted with mass highly suggestive of vegetations on anterior and posterior tricuspid valve. - ID consulted. - Given IV drug use, may not be a candidate for PICC line placement for IV abx, likely will require a prolong inpatient course. 2. Pneumonia - On Azithromycin and Rocephin at this time. - CT chest with patchy areas of infiltrate and focal consolidation. 3. Hyponatremia - Hypovolemic. resolved with IVF resuscitation. 4. Polysubstance abuse - IV heroin recent use. Started on methadone to prevent withdraw. - Can taper slowly. - Spoke with Psych Dr. Humphreys. - Will refer to Addiction clinic post discharge. - Will monitor EKG, cautious of QT prolongation with methadone and Azithromycin. 5. hepatitis C - not treated due to active IV drug use. - Counseled on cessation. Stated that she will stop using all drugs post discharge. DVT ppx: SCDs Code status: Full code VS, I&O, 24H, Fishbone Vital Signs/I&O Vital Signs Date Time Temp Pulse Resp B/P (MAP) Pulse Ox O2 Delivery O2 Flow Rate FiO2 03/15/19 10:00 97.4 75 17 117/ (39) 98 03/13/19 00:01 Room Air I&O- Last 24 Hours up to 6 AM 03/15/19 06:00 Intake Total 2510 ml Output Total 2000 ml Balance 510 ml Laboratory Data 24H LABS Laboratory Tests 2 03/14/19 17:28: Vancomycin Level Trough 15.5 03/15/19 06:16: Nucleated Red Blood Cells % (auto) 0.0, Anion Gap 7L, Glomerular Filtration Rate > 60.0, Blood Urea Nitrogen 5L, Creatinine 0.55, Sodium Level 141, Potassium Level 3.0L, Chloride Level 109H, Carbon Dioxide Level 25, Calcium Level 7.7L, Aspartate Amino Transf (AST/SGOT) 39H, Alanine Aminotransferase (ALT/SGPT) 35, Alkaline Phosphatase 96, Total Bilirubin 0.3, Total Protein 5.5L, Albumin 1.8L, Albumin/Globulin Ratio 0.49L CBC/BMP Laboratory Tests 03/15/19 06:16 Red Blood Count 3.26 L, Mean Corpuscular Volume 92.9, Mean Corpuscular Hemoglobin 31.6, Mean Corpuscular Hemoglobin Concent 34.0, Red Cell Distribution Width 13.4, Calcium Level 7.7 L, Aspartate Amino Transf (AST/SGOT) 39 H, Alanine Aminotransferase (ALT/SGPT) 35, Alkaline Phosphatase 96, Total Bilirubin 0.3, Total Protein 5.5 L, Albumin 1.8 L Microbiology Microbiology 03/14/19 Blood Culture, Received Pending 03/14/19 Blood Culture, Received Pending 03/12/19 Blood Culture - Final, Complete Staph.aureus Methicillin Resis 03/12/19 Blood Culture - Final, Complete Staph.aureus Methicillin Resis 03/12/19 Blood Culture - Final, Complete Staph.aureus Methicillin Resis 03/12/19 Respiratory Virus Panel (PCR) ([facility]) - Final, Complete ORIANA BURNETT MD Mar 15, 2019 14:12
[2019-03-15] MEDS: NICOTINE 14 MG/24 HR TRANSDERMAL TD SCH (18:16)
[2019-03-15] MEDS: CALCIUM CARBONATE 500 MG CHEW U/D PO PRN (19:51)
[2019-03-15] MEDS ORDERED: ACETAMINOPHEN TAB 650MG DOSE (2X325MG) PO PRN (20:30)
[2019-03-15] MEDS ORDERED: METHADONE 10 MG TAB (S0109) PO SCH (21:00)
[2019-03-15] MEDS ORDERED: METHADONE 5 MG TAB (S0109) PO ONE (21:00)
[2019-03-16] VITALS (7 sets, daily range): BP systolic 129–147; BP diastolic 77–92
[2019-03-16] MEDS: VANCOMYCIN HCL 1,000 MG, VIAL MATE ADAPTER 1 EACH in D5W 250 ML IV SCH ×4 (00:03→18:06)
[2019-03-16] MEDS: AZITHROMYCIN INJ 500 MG, VIAL MATE ADAPTER 1 EACH in D5W 250 ML IV SCH (02:13)
[2019-03-16] MEDS: KETOROLAC 30 MG/ML VIAL (J1885) IV PRN ×4 (02:14→21:42)
[2019-03-16] MEDS: cefTRIAXone SOD 1 GM in D5W MINI-BAG PLUS 50 ML IV SCH (04:20)
[2019-03-16 05:34] LABS: HEMATOCRIT 31.1 % (36.0-47.0); HEMOGLOBIN 10.6 g/dl (12.0-15.5); MEAN CORPUSCULAR HEMOGLOBIN 30.6 pg (27.0-33.0); MEAN CORPUSCULAR HGB CONC 34.1 g/dl (32.0-36.5); MEAN CORPUSCULAR VOLUME 89.9 fl (80.0-96.0); PLATELET COUNT, AUTOMATED 302 10^3/uL (150-450); RED BLOOD COUNT 3.46 10^6/uL (4.00-5.40); WHITE BLOOD COUNT 9.2 10^3/uL (4.0-10.0)
--- NOTE | 2019-03-16 06:04 | PHACANCOPD ---
PHARMACY VANCOMYCIN DOSING Pt Demographics Demographics Patient Age:28 , Weight:60.000 , Gender: female Adjusted Body Weight Date: 03/13/19, Adjusted Body Weight: Kg Events Past 24 Hours Events Past 24 Hours: NO: Dialysis, Diuretic Therapy, Change in CrCl, Fever, Elevation in WBC, Pending Diagnostics, Pending Procedures, Other Vancomycin Vancomycin Target Ranges: 15-20 mcg/ml Vancomycin Load Y/N: No Load Dose Date Time Vancomycin Load Dose: Date: Time: Vancomycin Dose Date: 03/13/19. Current Vancomycin Dose: [1000mg q8h] Intermittent Dosing?: No Labs Labs Item Value Date Time White Blood Count 9.2 10^3/uL 03/16/19 0518 Glomerular Filtration Rate > 60.0 03/15/19 0616 Creatinine 0.55 MG/DL 03/15/19 0616 Blood Urea Nitrogen 5 MG/DL L 03/15/19 0616 Vancomycin Level Trough 18.0 UG/ML 03/16/19 0518 Vital Signs Label Value Date Time Patient Temperature 99.8 degrees F 03/16/19 0245 Temperature Source Temporal 03/16/19 0245 Micro Microbiology 03/14/19 Blood Culture - Preliminary, Resulted No growth after 24 hours . All specim... 03/14/19 Blood Culture - Preliminary, Resulted No growth after 24 hours . All specim... 03/12/19 Blood Culture - Final, Complete Staph.aureus Methicillin Resis 03/12/19 Blood Culture - Final, Complete Staph.aureus Methicillin Resis 03/12/19 Blood Culture - Final, Complete Staph.aureus Methicillin Resis 03/12/19 Respiratory Virus Panel (PCR) (NISA) - Final, Complete Creatinine Clearance Date:03/13/19. Creatinine Clearance: [~100]. Assessment and Plan Maintaining Current Dose?: Yes Reason for dose change: No Dose Change Pharmacist Note Pharmacist Note Date: 03/16/19. Pharmacist note:Trough of 18 is within target range. Will continue current dosing. Will continue to monitor and make adjustments as needed. KELLY DASH [facility] Mar 16, 2019 06:04
[2019-03-16 06:06] LABS: ALT/SGPT 47 U/L (12-78); BILIRUBIN,TOTAL 0.2 MG/DL (0.2-1.0); BLOOD UREA NITROGEN 5 MG/DL (7-18); CALCIUM LEVEL 7.4 MG/DL (8.5-10.1); CARBON DIOXIDE LEVEL 24 MEQ/L (21-32); CHLORIDE LEVEL 104 MEQ/L (98-107); CREATININE FOR GFR 0.56 MG/DL (0.55-1.30); GLOMERULAR FILTRATION RATE > 60.0 (>60); GLUCOSE, FASTING 93 MG/DL (70-100); SODIUM LEVEL 137 MEQ/L (136-145); TOTAL PROTEIN 5.7 GM/DL (6.4-8.2)
[2019-03-16] MEDS: NICOTINE 14 MG/24 HR TRANSDERMAL TD SCH (08:15)
[2019-03-16] MEDS: ENOXAPARIN 40 MG/0.4 ML SYRINGE (J1650) SC SCH (09:00)
--- NOTE | 2019-03-16 11:16 | ECGEPIP ---
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
[2019-03-16] MEDS: SERTRALINE HCL 25 MG TABLET PO SCH (12:06)
--- NOTE | 2019-03-16 15:43 | IPNPDOC ---
Date Seen The patient was seen on 03/16/19. Progress Note SUBJECTIVE: Patient reports feeling better but has episodes of chest pain still associating it with anxiety. Requested medication for anxiety. Otherwise states that she feels better everyday. Tmax 100.9 at 10PM last night. OBJECTIVE PHYSICAL EXAMINATION: VITAL SIGNS: Please see below. General: Mild distress, alert, slightly tremulous Eyes: Normal sclera, EOMI, MOMO HENT: Atraumatic, neck supple, moist mucous membranes Cardiovascular: Normal rate, normal rhythm. Pulmonary: Clear to auscultation b/l GI: Soft, nontender, nondistended Skin: Warm and dry Neuro: CN grossly intact. No focal deficits. Strengths equal b/l. Psych: oriented x 3 LABORATORY DATA, IMAGING STUDIES, MICROBIOLOGY: Please see below. ASSESSMENT AND PLAN: 1. Endocarditis - Intermittent fevers, elevated ESR in setting of active IVDU with + blood cultures and ECHO findings suggestive of vegetations. - MRSA in 3 blood cultures. - On Rocephin, Vancomycin and Azithromycin- also being treated for PNA. - ECHO noted with mass highly suggestive of vegetations on anterior and posterior tricuspid valve. - ID consulted. - Given IV drug use, may not be a candidate for PICC line placement for IV abx, likely will require a prolong inpatient course. 2. Pneumonia - On Azithromycin and Rocephin at this time. - CT chest with patchy areas of infiltrate and focal consolidation. 3. Hyponatremia - Hypovolemic. resolved with IVF resuscitation. 4. Polysubstance abuse - IV heroin recent use. Started on methadone to prevent withdraw. - Can taper slowly. - Spoke with Psych Dr. Humphreys. - Will refer to Addiction clinic post discharge. - Will monitor EKG, cautious of QT prolongation with methadone and Azithromycin. 5. hepatitis C - not treated due to active IV drug use. - Counseled on cessation. Stated that she will stop using all drugs post discharge. 6. Anxiety - Started on Sertraline for MI DVT ppx: SCDs Code status: Full code VS, I&O, 24H, Fishbone Vital Signs/I&O Vital Signs Date Time Temp Pulse Resp B/P (MAP) Pulse Ox O2 Delivery O2 Flow Rate FiO2 03/16/19 14:00 98.7 97 20 142/82 (102) 95 03/13/19 00:01 Room Air I&O- Last 24 Hours up to 6 AM 03/16/19 06:00 Intake Total 3385 ml Output Total 0 ml Balance 3385 ml Laboratory Data 24H LABS Laboratory Tests 2 03/16/19 05:18: Nucleated Red Blood Cells % (auto) 0.0, Anion Gap 9, Glomerular Filtration Rate > 60.0, Blood Urea Nitrogen 5L, Creatinine 0.56, Sodium Level 137, Potassium L evel 4.0#, Chloride Level 104, Carbon Dioxide Level 24, Calcium Level 7.4L, Aspartate Amino Transf (AST/SGOT) 53H, Alanine Aminotransferase (ALT/SGPT) 47, Alkaline Phosphatase 104, Total Bilirubin 0.2, Total Protein 5.7L, Albumin 2.0L, Albumin/Globulin Ratio 0.54L, Vancomycin Level Trough 18.0 CBC/BMP Laboratory Tests 03/16/19 05:18 Red Blood Count 3.46 L, Mean Corpuscular Volume 89.9, Mean Corpuscular Hemoglobin 30.6, Mean Corpuscular Hemoglobin Concent 34.1, Red Cell Distribution Width 13.6, Calcium Level 7.4 L, Aspartate Amino Transf (AST/SGOT) 53 H, Alanine Aminotransferase (ALT/SGPT) 47, Alkaline Phosphatase 104, Total Bilirubin 0.2, Total Protein 5.7 L, Albumin 2.0 L Microbiology Microbiology 03/14/19 Blood Culture - Preliminary, Resulted No growth after 24 hours . All specim... 03/14/19 Blood Culture - Preliminary, Resulted No growth after 24 hours . All specim... 03/12/19 Blood Culture - Final, Complete Staph.aureus Methicillin Resis 03/12/19 Blood Culture - Final, Complete Staph.aureus Methicillin Resis 03/12/19 Blood Culture - Final, Complete Staph.aureus Methicillin Resis 03/12/19 Respiratory Virus Panel (PCR) (NISA) - Final, Complete ORIANA BURNETT MD Mar 16, 2019 15:43
[2019-03-16] MEDS ORDERED: traMADol 50 MG TAB PO PRN (18:30)
[2019-03-16] MEDS: METHADONE 5 MG TAB (S0109) PO SCH (20:00)
[2019-03-16] MEDS ORDERED: METHADONE 10 MG TAB (S0109) PO SCH (21:00)
[2019-03-17] MEDS: VANCOMYCIN HCL 1,000 MG, VIAL MATE ADAPTER 1 EACH in D5W 250 ML IV SCH ×5 (00:28→23:33)
[2019-03-17 02:00] VITALS: BP 144/88
[2019-03-17] MEDS: AZITHROMYCIN INJ 500 MG, VIAL MATE ADAPTER 1 EACH in D5W 250 ML IV SCH (02:52)
[2019-03-17] MEDS: cefTRIAXone SOD 1 GM in D5W MINI-BAG PLUS 50 ML IV SCH (04:31)
[2019-03-17 06:00] VITALS: BP 138/62
[2019-03-17 06:10] LABS: HEMATOCRIT 26.7 % (36.0-47.0); HEMOGLOBIN 9.2 g/dl (12.0-15.5); MEAN CORPUSCULAR HEMOGLOBIN 31.5 pg (27.0-33.0); MEAN CORPUSCULAR HGB CONC 34.5 g/dl (32.0-36.5); MEAN CORPUSCULAR VOLUME 91.4 fl (80.0-96.0); PLATELET COUNT, AUTOMATED 336 10^3/uL (150-450); RED BLOOD COUNT 2.92 10^6/uL (4.00-5.40); WHITE BLOOD COUNT 9.2 10^3/uL (4.0-10.0)
[2019-03-17 06:39] LABS: ALBUMIN 1.7 GM/DL (3.2-5.2); ALT/SGPT 62 U/L (12-78); BILIRUBIN,TOTAL 0.4 MG/DL (0.2-1.0); BLOOD UREA NITROGEN 6 MG/DL (7-18); CALCIUM LEVEL 7.4 MG/DL (8.5-10.1); CARBON DIOXIDE LEVEL 26 MEQ/L (21-32); CHLORIDE LEVEL 104 MEQ/L (98-107); CREATININE FOR GFR 0.52 MG/DL (0.55-1.30); GLOMERULAR FILTRATION RATE > 60.0 (>60); GLUCOSE, FASTING 92 MG/DL (70-100); POTASSIUM SERUM 3.7 MEQ/L (3.5-5.1); SODIUM LEVEL 137 MEQ/L (136-145); TOTAL PROTEIN 5.9 GM/DL (6.4-8.2)
[2019-03-17] MEDS: SERTRALINE HCL 25 MG TABLET PO SCH (08:33)
[2019-03-17] MEDS: ENOXAPARIN 40 MG/0.4 ML SYRINGE (J1650) SC SCH ×2 (08:33→08:40)
[2019-03-17] MEDS: KETOROLAC 30 MG/ML VIAL (J1885) IV PRN ×3 (08:33→23:33)
[2019-03-17] MEDS: NICOTINE 14 MG/24 HR TRANSDERMAL TD SCH (08:34)
--- NOTE | 2019-03-17 11:58 | IPNPDOC ---
Date Seen The patient was seen on 03/17/19. Progress Note SUBJECTIVE: Patient states that she is not in pain this morning and is very happy. Had remained afebrile overnight. Had pain episode yesterday but refused tramadol or any strong opiates, concern for opiate use. OBJECTIVE PHYSICAL EXAMINATION: VITAL SIGNS: Please see below. General: Mild distress, alert, slightly tremulous Eyes: Normal sclera, EOMI, MOMO HENT: Atraumatic, neck supple, moist mucous membranes Cardiovascular: Normal rate, normal rhythm. Pulmonary: Clear to auscultation b/l GI: Soft, nontender, nondistended Skin: Warm and dry Neuro: CN grossly intact. No focal deficits. Strengths equal b/l. Psych: oriented x 3 LABORATORY DATA, IMAGING STUDIES, MICROBIOLOGY: Please see below. ASSESSMENT AND PLAN: 1. Endocarditis - Intermittent fevers, elevated ESR in setting of active IVDU with + blood cultures and ECHO findings suggestive of vegetations. - MRSA in 3 blood cultures. - On Rocephin, Vancomycin and Azithromycin- also being treated for PNA. - ECHO noted with mass highly suggestive of vegetations on anterior and posterior tricuspid valve. - ID consulted. - Given IV drug use, may not be a candidate for PICC line placement for IV abx, likely will require a prolong inpatient course. 2. Pneumonia - On Azithromycin and Rocephin at this time. - CT chest with patchy areas of infiltrate and focal consolidation. 3. Hyponatremia - Hypovolemic. resolved with IVF resuscitation. 4. Polysubstance abuse - IV heroin recent use. Started on methadone to prevent withdraw. - Can taper slowly. - Spoke with Psych Dr. Humphreys. - Will refer to Addiction clinic post discharge. - Will monitor EKG, cautious of QT prolongation with methadone and Azithromycin. 5. hepatitis C - not treated due to active IV drug use. - Counseled on cessation. Stated that she will stop using all drugs post discharge. 6. Anxiety - Started on Sertraline for MI DVT ppx: SCDs Code status: Full code VS, I&O, 24H, Fishbone Vital Signs/I&O Vital Signs Date Time Temp Pulse Resp B/P (MAP) Pulse Ox O2 Delivery O2 Flow Rate FiO2 03/17/19 06:00 98.9 94 18 138/62 (87) 93 03/13/19 00:01 Room Air I&O- Last 24 Hours up to 6 AM 03/17/19 06:00 Intake Total 3245 ml Output Total 0 ml Balance 3245 ml Laboratory Data 24H LABS Laboratory Tests 2 03/17/19 05:53: Nucleated Red Blood Cells % (auto) 0.0, Anion Gap 7L, Glomerular Filtration Rate > 60.0, Blood Urea Nitrogen 6L, Creatinine 0.52L, Sodium Level 137, Potassium Level 3.7, Chloride Level 104, Carbon Dioxide Level 26, Calcium Level 7.4L, Aspartate Amino Transf (AST/SGOT) 65H, Alanine Aminotransferase (ALT/SGPT) 62, Alkaline Phosphatase 86, Total Bilirubin 0.4#, Total Protein 5.9L, Albumin 1.7L, Albumin/Globulin Ratio 0.40L CBC/BMP Laboratory Tests 03/17/19 05:53 Red Blood Count 2.92 L, Mean Corpuscular Volume 91.4, Mean Corpuscular Hemoglobin 31.5, Mean Corpuscular Hemoglobin Concent 34.5, Red Cell Distribution Width 13.4, Calcium Level 7.4 L, Aspartate Amino Transf (AST/SGOT) 65 H, Alanine Aminotransferase (ALT/SGPT) 62, Alkaline Phosphatase 86, Total Bilirubin 0.4 #, Total Protein 5.9 L, Albumin 1.7 L Microbiology Microbiology 03/14/19 Blood Culture - Preliminary, Resulted No Growth after 48 hours. All Specime... 03/14/19 Blood Culture - Preliminary, Resulted No Growth after 48 hours. All Specime... 03/12/19 Blood Culture - Final, Complete Staph.aureus Methicillin Resis 03/12/19 Blood Culture - Final, Complete Staph.aureus Methicillin Resis 03/12/19 Blood Culture - Final, Complete Staph.aureus Methicillin Resis 03/12/19 Respiratory Virus Panel (PCR) (NISA) - Final, Complete ORIANA BURNETT MD Mar 17, 2019 11:58
[2019-03-17 14:00] VITALS: BP 140/85
[2019-03-17 22:00] VITALS: BP 134/89
[2019-03-17] MEDS: METHADONE 5 MG TAB (S0109) PO SCH (22:05)
[2019-03-18] MEDS: AZITHROMYCIN INJ 500 MG, VIAL MATE ADAPTER 1 EACH in D5W 250 ML IV SCH (01:54)
[2019-03-18] MEDS: cefTRIAXone SOD 1 GM in D5W MINI-BAG PLUS 50 ML IV SCH (04:33)
[2019-03-18 06:00] VITALS: BP 130/85
[2019-03-18] MEDS: VANCOMYCIN HCL 1,000 MG, VIAL MATE ADAPTER 1 EACH in D5W 250 ML IV SCH ×3 (06:07→18:21)
[2019-03-18 06:37] LABS: HEMATOCRIT 32.9 % (36.0-47.0); HEMOGLOBIN 10.3 g/dl (12.0-15.5); MEAN CORPUSCULAR HGB CONC 31.3 g/dl (32.0-36.5); MEAN CORPUSCULAR VOLUME 99.1 fl (80.0-96.0); PLATELET COUNT, AUTOMATED 440 10^3/uL (150-450); RED BLOOD COUNT 3.32 10^6/uL (4.00-5.40); WHITE BLOOD COUNT 9.2 10^3/uL (4.0-10.0)
[2019-03-18 07:06] LABS: ALBUMIN 1.9 GM/DL (3.2-5.2); ALT/SGPT 155 U/L (12-78); BILIRUBIN,TOTAL 0.3 MG/DL (0.2-1.0); BLOOD UREA NITROGEN 6 MG/DL (7-18); CALCIUM LEVEL 7.9 MG/DL (8.5-10.1); CARBON DIOXIDE LEVEL 27 MEQ/L (21-32); CHLORIDE LEVEL 104 MEQ/L (98-107); CREATININE FOR GFR 0.54 MG/DL (0.55-1.30); GLOMERULAR FILTRATION RATE > 60.0 (>60); GLUCOSE, FASTING 90 MG/DL (70-100); POTASSIUM SERUM 4.3 MEQ/L (3.5-5.1); SODIUM LEVEL 136 MEQ/L (136-145); TOTAL PROTEIN 6.9 GM/DL (6.4-8.2)
[2019-03-18] MEDS: ENOXAPARIN 40 MG/0.4 ML SYRINGE (J1650) SC SCH (08:38)
[2019-03-18] MEDS: NICOTINE 14 MG/24 HR TRANSDERMAL TD SCH (08:46)
[2019-03-18] MEDS: SERTRALINE HCL 25 MG TABLET PO SCH (08:46)
[2019-03-18] MEDS: KETOROLAC 30 MG/ML VIAL (J1885) IV PRN ×2 (08:47→14:46)
--- NOTE | 2019-03-18 13:23 | IPNPDOC ---
Date Seen The patient was seen on 03/18/19. Progress Note SUBJECTIVE: Patient states that she is not in pain this morning and is very happy. Had remained afebrile overnight. Had pain episode yesterday but refused tramadol or any strong opiates, concern for opiate use. OBJECTIVE PHYSICAL EXAMINATION: VITAL SIGNS: Please see below. General: Mild distress, alert, slightly tremulous Eyes: Normal sclera, EOMI, MOMO HENT: Atraumatic, neck supple, moist mucous membranes Cardiovascular: Normal rate, normal rhythm. Pulmonary: Clear to auscultation b/l GI: Soft, nontender, nondistended Skin: Warm and dry Neuro: CN grossly intact. No focal deficits. Strengths equal b/l. Psych: oriented x 3 LABORATORY DATA, IMAGING STUDIES, MICROBIOLOGY: Please see below. ASSESSMENT AND PLAN: 1. Endocarditis - Intermittent fevers, elevated ESR in setting of active IVDU with + blood cultures and ECHO findings suggestive of vegetations. - MRSA in 3 blood cultures. - c/w Vancomycin. - ECHO noted mass on anterior and posterior tricuspid valve. - ID consulted. - Given IV drug use, may not be a candidate for PICC line placement for IV abx outpatient, likely will require a prolong inpatient course although still need PICC due to difficult access. 2. Pneumonia - s/p Abx course. - CT chest with patchy areas of infiltrate and focal consolidation. 3. Hyponatremia - Hypovolemic. resolved with IVF resuscitation. 4. Polysubstance abuse - IV heroin recent use. Started on methadone to prevent withdraw. - Can taper slowly. - Spoke with Psych Dr. Humphreys. - Will refer to Addiction clinic post discharge. 5. hepatitis C - not treated due to active IV drug use. - Counseled on cessation. Stated that she will stop using all drugs post discharge. 6. Anxiety - Started on Sertraline for MI DVT ppx: SCDs Code status: Full code VS, I&O, 24H, Fishbone Vital Signs/I&O Vital Signs Date Time Temp Pulse Resp B/P (MAP) Pulse Ox O2 Delivery O2 Flow Rate FiO2 03/18/19 06:00 99.0 84 18 130/85 (100) 96 03/13/19 00:01 Room Air I&O- Last 24 Hours up to 6 AM 03/18/19 05:59 Intake Total 1595 ml Balance 1595 ml Laboratory Data 24H LABS Laboratory Tests 2 7/7/19 06:19: Nucleated Red Blood Cells % (auto) 0.0, Anion Gap 5L, Glomerular Filtration Rate > 60.0, Blood Urea Nitrogen 6L, Creatinine 0.54L, Sodium Level 136, Potassium Level 4.3, Chloride Level 104, Carbon Dioxide Level 27, Calcium Level 7.9L, Aspartate Amino Transf (AST/SGOT) 171H, Alanine Aminotransferase (ALT/SGPT) 155H, Alkaline Phosphatase 96, Total Bilirubin 0.3, Total Protein 6.9, Albumin 1.9L, Albumin/Globulin Ratio 0.38L CBC/BMP Laboratory Tests 03/18/19 06:19 Red Blood Count 3.32 L, Mean Corpuscular Volume 99.1 H, Mean Corpuscular Hemoglobin 31.0, Mean Corpuscular Hemoglobin Concent 31.3 L, Red Cell Dis tribution Width 13.7, Calcium Level 7.9 L, Aspartate Amino Transf (AST/SGOT) 171 H, Alanine Aminotransferase (ALT/SGPT) 155 H, Alkaline Phosphatase 96, Total Bilirubin 0.3, Total Protein 6.9, Albumin 1.9 L Microbiology Microbiology 03/14/19 Blood Culture - Preliminary, Resulted No Growth after 72 hours. All specime... 03/14/19 Blood Culture - Preliminary, Resulted No Growth after 72 hours. All specime... 03/12/19 Blood Culture - Final, Complete Staph.aureus Methicillin Resis 03/12/19 Blood Culture - Final, Complete Staph.aureus Methicillin Resis 03/12/19 Blood Culture - Final, Complete Staph.aureus Methicillin Resis 03/12/19 Respiratory Virus Panel (PCR) (NISA) - Final, Complete ORIANA BURNETT MD Mar 18, 2019 13:23
[2019-03-18 14:00] VITALS: BP 134/88
[2019-03-18] MEDS: KETOROLAC TROMETHAMINE 10 MG TAB PO PRN (17:45)
[2019-03-18] MEDS: METHADONE 5 MG TAB (S0109) PO SCH (20:22)
[2019-03-18 22:00] VITALS: BP 120/70
[2019-03-19] MEDS: VANCOMYCIN HCL 1,000 MG, VIAL MATE ADAPTER 1 EACH in D5W 250 ML IV SCH ×5 (00:24→23:37)
[2019-03-19] MEDS: KETOROLAC TROMETHAMINE 10 MG TAB PO PRN ×3 (05:39→21:09)
[2019-03-19 06:00] VITALS: BP 120/80
[2019-03-19] MEDS: ENOXAPARIN 40 MG/0.4 ML SYRINGE (J1650) SC SCH (08:59)
[2019-03-19] MEDS: SERTRALINE HCL 25 MG TABLET PO SCH (09:18)
[2019-03-19] MEDS: NICOTINE 14 MG/24 HR TRANSDERMAL TD SCH (09:18)
--- NOTE | 2019-03-19 10:48 | IPNPDOC ---
Date Seen The patient was seen on 03/19/19. Progress Note SUBJECTIVE: Patient is in no apparent distress. States that she feels great. Still remained afebrile. Repeat blood cultures negative to date post 72 hours. Requested probiotics, multivitamins and inquired about optho eval. Patient reported blurry out of the L. eye since she felt sick that is unchanged. OBJECTIVE PHYSICAL EXAMINATION: VITAL SIGNS: Please see below. General: Mild distress, alert, slightly tremulous Eyes: Normal sclera, EOMI, MOMO HENT: Atraumatic, neck supple, moist mucous membranes Cardiovascular: Normal rate, normal rhythm. Pulmonary: Clear to auscultation b/l GI: Soft, nontender, nondistended Skin: Warm and dry Neuro: CN grossly intact. No focal deficits. Strengths equal b/l. Psych: oriented x 3 LABORATORY DATA, IMAGING STUDIES, MICROBIOLOGY: Please see below. ASSESSMENT AND PLAN: 1. Endocarditis - Intermittent fevers, elevated ESR in setting of active IVDU with + blood cultures and ECHO findings suggestive of vegetations. - MRSA in 3 blood cultures. - c/w Vancomycin. - ECHO noted mass on anterior and posterior tricuspid valve. - ID consulted. - Given IV drug use, may not be a candidate for PICC line placement for IV abx outpatient, likely will require a prolong inpatient course although still need PICC due to difficult access. - L. eye blurry vision, Opthalmology consulted, call placed and voice message placed. May be sequela of endocarditis. 2. Pneumonia - s/p Abx course. - CT chest with patchy areas of infiltrate and focal consolidation. 3. Hyponatremia - Hypovolemic. resolved with IVF resuscitation. 4. Polysubstance abuse - IV heroin recent use. Started on methadone to prevent withdraw. - Can taper slowly. - Spoke with Psych Dr. Humphreys. - Will refer to Addiction clinic post discharge. 5. hepatitis C - not treated due to active IV drug use. - Counseled on cessation. Stated that she will stop using all drugs post discharge. 6. Anxiety - Started on Sertraline for MI with significant improvement in mood. DVT ppx: SCDs Code status: Full code VS, I&O, 24H, Fishbone Vital Signs/I&O Vital Signs Date Time Temp Pulse Resp B/P (MAP) Pulse Ox O2 Delivery O2 Flow Rate FiO2 03/19/19 06:00 99.7 87 16 120/80 (93) 99 03/13/19 00:01 Room Air I&O- Last 24 Hours up to 6 AM0 03/19/19 05:59 Intake Total 2340 ml Balance 2340 ml Laboratory Data Microbiology Microbiology 03/14/19 Blood Culture - Preliminary, Resulted No Growth after 72 hours. All specime... 03/14/19 Blood Culture - Preliminary, Resulted No Growth after 72 hours. All specime... 03/12/19 Blood Culture - Final, Complete Staph.aureus Methicillin Resis 03/12/19 Blood Culture - Final, Complete Staph.aureus Methicillin Resis 03/12/19 Blood Culture - Final, Complete Staph.aureus Methicillin Resis 03/12/19 Respiratory Virus Panel (PCR) (NISA) - Final, Complete ORIANA BURNETT MD Mar 19, 2019 10:48
[2019-03-19] MEDS: MULTIVITAMINS/MINERALS THERAP 1 TAB PO SCH (13:00)
[2019-03-19] MEDS: LACTOBACILLUS ACIDOPHILUS CAP (BACID) PO SCH ×2 (13:00→18:56)
[2019-03-19 14:00] VITALS: BP 123/82
[2019-03-19] MEDS ORDERED: LIDOCAINE 1% MDV 20ML VIAL As Ordered ONE (16:01)
[2019-03-19] MEDS: SODIUM CHLORIDE 0.9% INJ 10 ML SYR IV PRN (20:37)
[2019-03-19] MEDS: METHADONE 5 MG TAB (S0109) PO SCH (21:08)
[2019-03-19 22:00] VITALS: BP 129/79
--- NOTE | 2019-03-19 23:33 | CR.PDOC ---
General Date of Consultation: Mar 19, 2019 Consultation HISTORY OF PRESENT ILLNESS: Paula is a 28 yo female with past history of heavy drug abuse, she presented to the ED on March 12, 2019 with fevers and chest pressure and associated chest pain. She had an ECHO in house that showed potential vegitation growth on the tricuspid valve, she has has x3 blood cultures positive for MRSA on 03.12.2019 but also has had x2 negative blood culture from 03.14.2019. She is currently receiving IV Vancomycin, she has remained afebrile, WBC has normalized, in fact last documented fever was on 03.15.2019. She is in good spirits today on examination, she describes some right chest pressure worse when she takes a deep breath in or applies pressure to the outside area, she denies n/v, diarrhea, chills, night sweats or headache, she admits to a dry, persistent cough. She did also receive azithromycin, ceftriaxone and a dose of Zosyn, CT chest had shown some patchy areas of infli trate and potential focal consolidation. She states she was diagnosed with Hep C one year ago while in a drug rehab [facility] but never had treatment for this. ALLERGIES: Please see below. HOME MEDICATIONS: Please see below. PAST MEDICAL HISTORY: Tobacco and Drug abuse PAST SURGICAL HISTORY: History of 4 abortions FAMILY HISTORY: Brother is also unfortunately an IVDU, boyfriend has untreated Hep C SOCIAL HISTORY: Admits to IV Heroin, cocaine, meth use, marijuana use, crack cocaine and intranasal cocaine use REVIEW OF SYSTEMS: 12 point ROS reviewed and negative except for pertinent positives in HPI PHYSICAL EXAMINATION: VITAL SIGNS: Please see below. GENERAL APPEARANCE: young female sitting in bed, anxious appearing but in no real distress, speaking in full sentences HEENT: EOMI, moist mucus membranes, no JVD RESPIRATORY: cta b/l, no wheezing rales or rhonchi CARDIOVASCULAR: normal s1 and s2, no murmurs, rubs or gallops, some pressure applied to rib cage above right breast produces some point tenderness ABDOMEN: soft, nabsx4, no hepatosplenomegaly or masses appreciated, no rebound rigity or guarding appreciated, non distended EXTREMITIES: no cyanosis mottling or edema NEUROLOGICAL: no focal deficits LABORATORY DATA: Please see below. 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 She is currently on IV vancomycin 1 gm Q6 hours. Hx IVDA and chronic hepatitis C untreated -PLAN 1- pt has explicitly stated she does not want a PICC line to go home, she states she will use drugs through it. Would advise against her having a PICC Line at home. As such she will either need to be hospitalized for 4-6 wks of IV abx treatment or could possible be treated with PO antibiotic Dalvance. However right now she should remain in the hospital for about another week to obtain IV vancomycin via a PICC line. 2. Anxiety -She is continued on sertraline, and is seeing psychiatry in house 3. Tobacco abuse and drug use -currently with nicotine patch, continues on methadone We will continue to follow the pt in house and make further recommendations as clinical course progresses. Vital Signs/I&O Vital Signs Date Time Temp Pulse Resp B/P (MAP) Pulse Ox O2 Delivery O2 Flow Rate FiO2 03/19/19 22:00 98.4 77 17 129/79 (96) 98 03/13/19 00:01 Room Air I&O- Last 24 Hours up to 6 AM 03/19/19 06:00 Intake Total 2460 ml Balance 2460 ml Laboratory Data Microbiology Microbiology 03/14/19 Blood Culture - Final, Complete NO GROWTH AFTER 5 DAYS 03/14/19 Blood Culture - Final, Complete NO GROWTH AFTER 5 DAYS 03/12/19 Blood Culture - Final, Complete Staph.aureus Methicillin Resis 03/12/19 Blood Culture - Final, Complete Staph.aureus Methicillin Resis 03/12/19 Blood Culture - Final, Complete Staph.aureus Methicillin Resis 03/12/19 Respiratory Virus Panel (PCR) (NISA) - Final, Complete Allergies Coded Allergies: No Known Allergies (Unverified , 06/03/17) Home Medications No Active Prescriptions or Reported Meds GME ATTESTATION GME ATTESTATION My faculty preceptor for this patient encounter was physically present during the encounter and was fully available. All aspects of the patient interview, examination, medical decision making process, and medical care plan development were reviewed and approved by the faculty preceptor. The faculty preceptor is aware and concurs with the plan as stated in the body of this note and will attest to such by his/her cosignature. TROY MEJÍA DO Mar 19, 2019 23:33 Roxy Negron MD Mar 21, 2019 22:38
--- NOTE | 2019-03-19 23:56 | PHACANCOPD ---
PHARMACY VANCOMYCIN DOSING Pt Demographics Demographics Patient Age:28 , Weight:60.000 , Gender: female Adjusted Body Weight Vancomycin Vancomycin indication: ENDOCARDITIS Vancomycin Target Ranges: 15-20 mcg/ml Vancomycin Load Y/N: No Load Dose Date Time Vancomycin Load Dose: Date: Time: Vancomycin Dose Date: 03/19/19. Current Vancomycin Dose: [1000mg IV q6h (next @18:00)] Intermittent Dosing?: No Labs Micro Microbiology 03/14/19 Blood Culture - Final, Complete NO GROWTH AFTER 5 DAYS 03/14/19 Blood Culture - Final, Complete NO GROWTH AFTER 5 DAYS 03/12/19 Blood Culture - Final, Complete Staph.aureus Methicillin Resis 03/12/19 Blood Culture - Final, Complete Staph.aureus Methicillin Resis 03/12/19 Blood Culture - Final, Complete Staph.aureus Methicillin Resis 03/12/19 Respiratory Virus Panel (PCR) (NISA) - Final, Complete Creatinine Clearance Date:03/19/19. Creatinine Clearance: [>80ml/min]. Pending Labs VANCO TROUGH RESCHEDULED FOR 12NOON DOSE 03/20/19 Assessment and Plan Maintaining Current Dose?: Yes Reason for dose change: No Dose Change Pharmacist Note Pharmacist Note Date: 03/19/19. PharmD note: A SCHEDULED VANCO TROUGH ORDERED FOR THIS EVENING PRIOR TO THE 18:00 DOSE WAS CANCELLED DUE TO A LOSS OF IV ACCESS THIS MORNING RESULTING IN THE NOON DOSE BEING OMITTED. A PICC LINE WAS PLACED LATE THIS AFTERNOON AND THE 18:00 WAS RESUMED. WE; THEREFORE, RESCHEDULED A VANCO TROUGH PRIOR TO 03/20 12 NOON DOSE (11:00am) [facility] Mar 19, 2019 23:56
[2019-03-20] MEDS: SODIUM CHLORIDE 0.9% INJ 10 ML SYR IV PRN ×2 (00:43→22:15)
[2019-03-20 06:00] VITALS: BP 136/75
[2019-03-20] MEDS: VANCOMYCIN HCL 1,000 MG, VIAL MATE ADAPTER 1 EACH in D5W 250 ML IV SCH ×2 (06:03→20:54)
[2019-03-20] MEDS: SODIUM CHLORIDE 0.9% INJ 10 ML SYR IV SCH ×2 (07:32→16:21)
[2019-03-20] MEDS: MULTIVITAMINS/MINERALS THERAP 1 TAB PO SCH (08:46)
[2019-03-20] MEDS: SERTRALINE HCL 25 MG TABLET PO SCH (08:46)
[2019-03-20] MEDS: LACTOBACILLUS ACIDOPHILUS CAP (BACID) PO SCH ×2 (08:46→17:30)
[2019-03-20] MEDS: ENOXAPARIN 40 MG/0.4 ML SYRINGE (J1650) SC SCH (08:47)
[2019-03-20] MEDS: NICOTINE 14 MG/24 HR TRANSDERMAL TD SCH (08:47)
[2019-03-20] MEDS ORDERED: TROPICAMIDE 1% OPHTH SOLN 2ML OU ONE (10:00)
[2019-03-20] MEDS ORDERED: PHENYLEPHRINE 2.5% OPHTH SOL 2ML OU ONE (10:00)
[2019-03-20 11:20] LABS: HEMATOCRIT 29.5 % (36.0-47.0); HEMOGLOBIN 9.6 g/dl (12.0-15.5); MEAN CORPUSCULAR HGB CONC 32.5 g/dl (32.0-36.5); MEAN CORPUSCULAR VOLUME 95.2 fl (80.0-96.0); PLATELET COUNT, AUTOMATED 571 10^3/uL (150-450); WHITE BLOOD COUNT 10.4 10^3/uL (4.0-10.0)
[2019-03-20 11:47] LABS: ALBUMIN 2.1 GM/DL (3.2-5.2); ALT/SGPT 172 U/L (12-78); BILIRUBIN,TOTAL 0.2 MG/DL (0.2-1.0); BLOOD UREA NITROGEN 8 MG/DL (7-18); CARBON DIOXIDE LEVEL 25 MEQ/L (21-32); CHLORIDE LEVEL 104 MEQ/L (98-107); CREATININE FOR GFR 0.65 MG/DL (0.55-1.30); GLOMERULAR FILTRATION RATE > 60.0 (>60); GLUCOSE, FASTING 114 MG/DL (70-100); POTASSIUM SERUM 4.5 MEQ/L (3.5-5.1); SODIUM LEVEL 138 MEQ/L (136-145); TOTAL PROTEIN 6.6 GM/DL (6.4-8.2); VANCOMYCIN LEVEL TROUGH 21.9 UG/ML (10.0-20.0)
--- NOTE | 2019-03-20 12:14 | PHACANCOPD ---
PHARMACY VANCOMYCIN DOSING Pt Demographics Demographics Patient Age:28 , Weight:60.000 , Gender: female Adjusted Body Weight Events Past 24 Hours Events Past 24 Hours: NO: Dialysis, Diuretic Therapy, Change in CrCl, Fever, Elevation in WBC, Pending Diagnostics, Pending Procedures, Other Vancomycin Vancomycin indication: ENDOCARDITIS Vancomycin Target Ranges: 15-20 mcg/ml Vancomycin Load Y/N: No Load Dose Date Time Vancomycin Load Dose: Date: Time: Vancomycin Dose Date: 03/20/19. Current Vancomycin Dose: [750MG IV Q6H @1400] Date: 03/19/19. Current Vancomycin Dose: [1000mg IV q6h (next @18:00)] Intermittent Dosing?: No Labs Labs Item Value Date Time White Blood Count 9.2 10^3/uL 03/16/19 0518 White Blood Count 9.2 10^3/uL 03/17/19 0553 White Blood Count 9.2 10^3/uL 03/18/19 0619 White Blood Count 10.4 10^3/uL H 03/20/19 1108 Creatinine 0.52 MG/DL L 03/17/19 0553 Creatinine 0.54 MG/DL L 03/18/19 0619 Creatinine 0.65 MG/DL 03/20/19 1108 Vancomycin Level Trough 15.5 UG/ML 03/14/19 1728 Vancomycin Level Trough 18.0 UG/ML 03/16/19 0518 Vancomycin Level Trough 21.9 UG/ML H 03/20/19 1108 Micro Microbiology 03/14/19 Blood Culture - Final, Complete NO GROWTH AFTER 5 DAYS 03/14/19 Blood Culture - Final, Complete NO GROWTH AFTER 5 DAYS 03/12/19 Blood Culture - Final, Complete Staph.aureus Methicillin Resis 03/12/19 Blood Culture - Final, Complete Staph.aureus Methicillin Resis 03/12/19 Blood Culture - Final, Complete Staph.aureus Methicillin Resis 03/12/19 Respiratory Virus Panel (PCR) ([facility]) - Final, Complete Creatinine Clearance Date:03/19/19. Creatinine Clearance: [>80ml/min]. Pending Labs VANCO TROUGH 03/21/19 1300 Assessment and Plan Maintaining Current Dose?: No Reason for dose change: Trough too high Pharmacist Note Pharmacist Note Date: 03/20/19. Pharmacist note:Vancomycin trough came in today @ 21.9mcg/ml @ 11:08. Therapy will be changed to 750mg iv every 6 hours starting today @14:00. A trough is scheduled for 03/21/19 @13:00. We will continue to monitor and adjust the dose as needed. Date: 03/19/19. PharmD note: A SCHEDULED VANCO TROUGH ORDERED FOR THIS EVENING PRIOR TO THE 18:00 DOSE WAS CANCELLED DUE TO A LOSS OF IV ACCESS THIS MORNING RESULTING IN THE NOON DOSE BEING OMITTED. A PICC LINE WAS PLACED LATE THIS AFTERNOON AND THE 18:00 WAS RESUMED. WE; THEREFORE, RESCHEDULED A VANCO TROUGH PRIOR TO 03/20 12 NOON DOSE (11:00am) [facility] Mar 20, 2019 12:14
--- NOTE | 2019-03-20 13:54 | CR ---
DATE OF CONSULTATION: 03/20/2019 CHIEF COMPLAINT: Blurred vision in the left eye for approximately one week. HISTORY OF PRESENT ILLNESS: The patient is a 28-year-old white female who was admitted eight days ago with fevers and shaking chills. She has a past medical history of IV drug abuse and admits to recently injecting drugs prior to this episode. The patient was identified to have bacterial endocarditis consistent with MRSA and has been on IV antibiotics therapy during the duration of her stay. Today, the patient was seen at the bedside in no acute distress. Mentating appropriately. Denies headache, blackouts, floaters or flashes, or discharge in either eye. She admits to having mild blurred vision in the left eye for 8 days which has not progressed, she does not remember when she saw "well" with this eye. PAST MEDICAL HISTORY: IV drug abuse. Polysubstance abuse. Tobacco abuse. HOME MEDICATIONS: See chart. ALLERGIES: See chart. PAST SURGICAL HISTORY: Patient is status post four times. PAST OCULAR HISTORY: Denies any prior ocular surgery. Denies contact lens or glasses used - no prior examinations. EXAMINATION: This is a limited patient bedside exam was performed with indirect illumination and 20 diopter lens. Vision in the right eye 20/20. Vision in the left eye 20/30. Pupils were pharmacologically dilated. Extraocular muscles were full without restriction. The confrontations were full to confrontation bilaterally. The IOP is soft by finger palpation. Anterior segment exam revealed the lids, lashes and adnexa are within normal limits OU There are no ecchymosis or petechia hemorrhaging on either conjunctiva or sclera OU The cornea is clear. There is no hypopyon or corneal infiltrate OU The iris was flat and brown. The lens appears clear OU Dilated fundus exam was performed with a 20 diopter illumination and indirect ophthalmoscopy. Cup-to-disc ratio was 0.35 in the right eye, 0.35 in the left eye, and the disc was sharp, pink and flat with no evidence of edema or optic nerve hemorrhage. Macula is without evidence of hemorrhage, edema or exudates. The vitreous appears to be clear with no evidence of vitritis, the media is clear. The periphery in the right eye was within normal limits. No evidence of hemorrhages and appears flat without breaks, tears or detachment. Left eye- the periphery at the 3 to 4 o'clock hour position shows two areas of retinal hemorrhaging with evidence of Espinosa spots. There is no chorioretinitis or vitritis at this time. ASSESSMENT/PLAN: 1. Retinal hemorrhage consistent with Espinosa spot in the presence of IV drug abuse. No intervention needed at this time, will monitor. The patient is on IV antibiotics for treatment of endocarditis. I cannot rule our subclinical macular edema on this exam, will need further imaging on discharge. 2. Blurred vision likely due to #1. 3. Bacterial endocarditis. Continue treatment plan with primary care team. Follow-up will include reexamination in approximately 10 days to two weeks, unless the patient has any change in vision status. SERAFIND
[2019-03-20 14:00] VITALS: BP 109/63
[2019-03-20] MEDS ORDERED: VANCOMYCIN HCL 750 MG, VIAL MATE ADAPTER 1 EACH in D5W 250 ML IV SCH (14:00)
[2019-03-20] MEDS ORDERED: NS 1,000 ML IV ONE (16:15)
[2019-03-20] MEDS ORDERED: KETOROLAC 30 MG/ML VIAL (J1885) IV ONE (16:15)
--- NOTE | 2019-03-20 17:55 | IPNPDOC ---
Date Seen The patient was seen on 03/20/19. Progress Note SUBJECTIVE: Paula is a 28-year-old female with [place] valve endocarditis. Her only complaint today is R-sided chest pain, most likely secondary to a septic emboli, that occurs when she coughs or laughs. The pain has slightly decreased since the previous day. She is SOB when she speaks but it is better than the previous day. She is not in any acute distress. She denies any nausea, vomiting, chills, fevers or joint pains. OBJECTIVE PHYSICAL EXAMINATION: VITAL SIGNS: Please see below. GENERAL: young female in no acute distress, less anxious than previous day HEENT: normocephalic, EOMI CARDIOVASCULAR: systolic +2 murmur RESPIRATORY: cta b/l, no wheezes or rales ABDOMINAL: soft, nontender, nl bowel sounds x4, no masses EXTREMITIES: no edema NEUROLOGICAL: no focal deficits LABORATORY DATA, IMAGING STUDIES, MICROBIOLOGY: Please see below. Echocardiogram: thickening attached to anterior or posterior tricuspid valve leaflets with associated mild-moderate insufficiency suspicious for a vegetation. ASSESSMENT AND PLAN: This is a 28-year-old female with [place] valve endocarditis. PROBLEMS: 1. MRSA [place] Valve Endocarditis Right sided tricuspid -continue IV vancomycin 2. Chest Pain secondary likely secondary to Septic Emboli -continue IV vancomycin, if worsens will get a chest CT 3. tobacco and substance use disorder: -continue nicotine patch, continue methadone. VS, I&O, 24H, Fishbone Vital Signs/I&O Vital Signs Date Time Temp Pulse Resp B/P (MAP) Pulse Ox O2 Delivery O2 Flow Rate FiO2 03/20/19 14:00 98.0 94 19 109/63 (78) 96 I&O- Last 24 Hours up to 6 AM 03/20/19 06:00 Intake Total 1247 ml Output Total 0 ml Balance 1247 ml Laboratory Data 24H LABS Laboratory Tests 2 03/20/19 11:08: Nucleated Red Blood Cells % (auto) 0.0, Anion Gap 9, Glomerular Filtration Rate > 60.0, Blood Urea Nitrogen 8, Creatinine 0.65, Sodium Level 138, Potassium Level 4.5, Chloride Level 104, Carbon Dioxide Level 25, Calcium Level 8.0L, Aspartate Amino Transf (AST/SGOT) 99H, Alanine Aminotransferase (ALT/SGPT) 172H, Alkaline Phosphatase 98, Total Bilirubin 0.2, Total Protein 6.6, Albumin 2.1L, Albumin/Globulin Ratio 0.47L, Vancomycin Level Trough 21.9H CBC/BMP Laboratory Tests 03/20/19 11:08 Red Blood Count 3.10 L, Mean Corpuscular Volume 95.2, Mean Corpuscular Hemoglobin 31.0, Mean Corpuscular Hemoglobin Concent 32.5, Red Cell Distribution Width 13.4, Calcium Level 8.0 L, Aspartate Amino Transf (AST/SGOT) 99 H, Alanine Aminotransferase (ALT/SGPT) 172 H, Alkaline Phosphatase 98, Total Bilirubin 0.2, Total Protein 6.6, Albumin 2.1 L Microbiology Microbiology 03/14/19 Blood Culture - Final, Complete NO GROWTH AFTER 5 DAYS 03/14/19 Blood Culture - Final, Complete NO GROWTH AFTER 5 DAYS 03/12/19 Blood Culture - Final, Complete Staph.aureus Methicillin Resis 03/12/19 Blood Culture - Final, Complete Staph.aureus Methicillin Resis 03/12/19 Blood Culture - Final, Complete Staph.aureus Methicillin Resis 03/12/19 Respiratory Virus Panel (PCR) ([facility]) - Final, Complete BRYANT NEVAREZ OMS-3 Mar 20, 2019 17:55 Roxy Negron MD Mar 21, 2019 22:47
[2019-03-20] MEDS: METHADONE 5 MG TAB (S0109) PO SCH (20:53)
[2019-03-20 22:00] VITALS: BP 120/72
[2019-03-20] MEDS: KETOROLAC 30 MG/ML VIAL (J1885) IV SCH (23:12)
[2019-03-21] MEDS: VANCOMYCIN HCL 1,000 MG, VIAL MATE ADAPTER 1 EACH in D5W 250 ML IV SCH ×3 (03:43→19:44)
[2019-03-21] MEDS: SODIUM CHLORIDE 0.9% INJ 10 ML SYR IV SCH ×2 (04:50→17:59)
[2019-03-21] MEDS: KETOROLAC 30 MG/ML VIAL (J1885) IV SCH ×2 (04:51→11:32)
[2019-03-21 06:00] VITALS: BP 110/72
[2019-03-21 06:20] LABS: HEMATOCRIT 30.5 % (36.0-47.0); HEMOGLOBIN 9.7 g/dl (12.0-15.5); MEAN CORPUSCULAR HEMOGLOBIN 30.7 pg (27.0-33.0); MEAN CORPUSCULAR HGB CONC 31.8 g/dl (32.0-36.5); MEAN CORPUSCULAR VOLUME 96.5 fl (80.0-96.0); PLATELET COUNT, AUTOMATED 539 10^3/uL (150-450); RED BLOOD COUNT 3.16 10^6/uL (4.00-5.40)
[2019-03-21 09:12] LABS: HEPATITIS B SURFACE ANTIBODY POSITIVE (POSITIVE); HEPATITIS B SURFACE ANTIGEN NEGATIVE (NEGATIVE); HEPATITIS C VIRUS ABY INDEX > 11.0 INDEX (<0.8)
[2019-03-21] MEDS: MULTIVITAMINS/MINERALS THERAP 1 TAB PO SCH (09:19)
[2019-03-21] MEDS: NICOTINE 14 MG/24 HR TRANSDERMAL TD SCH (09:19)
[2019-03-21] MEDS: LACTOBACILLUS ACIDOPHILUS CAP (BACID) PO SCH ×2 (09:19→17:59)
[2019-03-21] MEDS: SERTRALINE HCL 25 MG TABLET PO SCH (09:19)
[2019-03-21 14:00] VITALS: BP 140/70
--- NOTE | 2019-03-21 19:37 | PHACANCOPD ---
PHARMACY VANCOMYCIN DOSING Pt Demographics Demographics Patient Age:28 , Weight:60.000 , Gender: female Adjusted Body Weight Events Past 24 Hours Events Past 24 Hours: NO: Dialysis, Diuretic Therapy, Change in CrCl, Fever, Elevation in WBC, Pending Diagnostics, Pending Procedures, Other Vancomycin Vancomycin indication: ENDOCARDITIS Vancomycin Target Ranges: 15-20 mcg/ml Vancomycin Load Y/N: No Load Dose Date Time Vancomycin Load Dose: Date: Time: Vancomycin Dose Date: 03/21/19. Current Vancomycin Dose: [1000mg iv q8h] Date: 03/20/19. Current Vancomycin Dose: [750MG IV Q6H @1400] Date: 03/19/19. Current Vancomycin Dose: [1000mg IV q6h (next @18:00)] Intermittent Dosing?: No Labs Labs Item Value Date Time White Blood Count 9.2 10^3/uL 03/18/19 0619 White Blood Count 10.4 10^3/uL H 03/20/19 1108 White Blood Count 8.0 10^3/uL 03/21/19 0547 Creatinine 0.52 MG/DL L 03/17/19 0553 Creatinine 0.55 MG/DL 03/15/19 0616 Creatinine 0.54 MG/DL L 03/18/19 0619 Creatinine 0.65 MG/DL 03/20/19 1108 Creatinine 0.56 MG/DL 03/16/19 0518 Vancomycin Level Trough 15.5 UG/ML 03/14/19 1728 Vancomycin Level Trough 18.0 UG/ML 03/16/19 0518 Vancomycin Level Trough 21.9 UG/ML H 03/20/19 1108 Vancomycin Level Trough 16.7 UG/ML 03/21/19 1853 Micro Microbiology 03/14/19 Blood Culture - Final, Complete NO GROWTH AFTER 5 DAYS 03/14/19 Blood Culture - Final, Complete NO GROWTH AFTER 5 DAYS 03/12/19 Blood Culture - Final, Complete Staph.aureus Methicillin Resis 03/12/19 Blood Culture - Final, Complete Staph.aureus Methicillin Resis 03/12/19 Blood Culture - Final, Complete Staph.aureus Methicillin Resis 03/12/19 Respiratory Virus Panel (PCR) (NISA) - Final, Complete Creatinine Clearance Date:03/19/19. Creatinine Clearance: [>80ml/min]. Assessment and Plan Maintaining Current Dose?: Yes Reason for dose change: No Dose Change Pharmacist Note Pharmacist Note Date: 03/21/19. Pharmacist note: Vancomycin trough came in today @16.7mcg/ml @18:53. Therapy will continue at 1g IV q8h. We will continue to monitor and adjust the dose as needed. Date: 03/20/19. Pharmacist note:Vancomycin trough came in today @ 21.9mcg/ml @ 11:08. Therapy will be changed to 750mg iv every 6 hours starting today @14:00. A trough is scheduled for 03/21/19 @13:00. We will continue to monitor and adjust the dose as needed. Date: 03/19/19. PharmD note: A SCHEDULED VANCO TROUGH ORDERED FOR THIS EVENING PRIOR TO THE 18:00 DOSE WAS CANCELLED DUE TO A LOSS OF IV ACCESS THIS MORNING RESULTING IN THE NOON DOSE BEING OMITTED. A PICC LINE WAS PLACED LATE THIS AFTERNOON AND THE 18:00 WAS RESUMED. WE; THEREFORE, RESCHEDULED A VANCO TROUGH PRIOR TO 03/20 12 NOON DOSE (11:00am) [facility] Mar 21, 2019 19:37
[2019-03-21] MEDS: METHADONE 5 MG TAB (S0109) PO SCH (19:44)
--- NOTE | 2019-03-21 20:05 | IPNPDOC ---
Date Seen The patient was seen on 03/20/19. Progress Note SUBJECTIVE: Pt denies any pleuritic chest pain, sob, fever, chills, abd pain. She continues to have blurred vision which is not worse. No eye pain, discharge,scotomas, floaters, lighting flashes, or redness. Per Ophthalmology, Dr. Bryan, " Retinal hemorrhage consistent with Garcia spot and IV drug abuse. This will be monitored. Currently no intervention necessary. Patient is on IV antibiotics which is the appropriate treatment, reexamination in approximately 10 days to two weeks, unless the patient has any change in vision status." OBJECTIVE PHYSICAL EXAMINATION: VITAL SIGNS: Please see below. General: asleep,but easily arousable. no respiratory distress. Eyes: Normal sclera, EOMI, MELISSA. lids, lashes and adnexa are within normal limits.No conjunctival or scleral ecchymosis or petechia hemorrhages The cornea is clear. There is no hypopyon or corneal infiltrate. HENT: Atraumatic, neck supple, moist mucous membranes Cardiovascular: Normal rate, normal rhythm. Pulmonary: Clear to auscultation b/l GI: Soft, nontender, nondistended Skin: Warm and dry Neuro: CN grossly intact. No focal deficits. Strengths equal b/l. normal finger to nose testing. Psych: oriented x 3 LABORATORY DATA, IMAGING STUDIES, MICROBIOLOGY: Please see below. ASSESSMENT AND PLAN: 28 y/o female with history of polysubstance abuse, tobacco abuse, suicidal thoughts admitted for fever, cough, pleuritic chest pain, and found to have [place] valve tricuspid valve endocarditis due to drug abuse with garcia spots and retinal hemorrhages, s/p PICC line on IV vanco. ID consulted. [place] Valve Endocarditis in the setting of IVDU - Intermittent fevers, elevated ESR in setting of active IVDU with + blood cultures and ECHO findings suggestive of vegetations. - MRSA in 3 blood cultures. - c/w Vancomycin. - ECHO noted mass on anterior and posterior tricuspid valve. - ID consulted. - Given IV drug use, may not be a candidate for PICC line placement for IV abx outpatient, likely will require a prolong inpatient course although still need PICC due to difficult access. - L. eye blurry vision, Opthalmology consulted. -Per Ophthalmology, Dr. Bryan, " Retinal hemorrhage consistent with Garcia spot and IV drug abuse. This will be monitored. Currently no intervention necessary. Patient is on IV antibiotics which is the appropriate treatment, reexamination in approximately 10 days to two weeks, unless the patient has any change in vision status." Retinal Hemorrhages -consistent with septic emboli IVDU- related tricuspid valve endocarditis -with c/o left eye blurred vision -Per Ophthalmology, Dr. Bryan, " This will be monitored. Currently no intervention necessary. Patient is on IV antibiotics which is the appropriate treatment, reexamination in approximately 10 days to two weeks, unless the patient has any change in vision status." Pneumonia - s/p Abx course. - CT chest with patchy areas of infiltrate and focal consolidation. Hyponatremia - Hypovolemic. resolved with IVF resuscitation. Polysubstance abuse - IV heroin recent use. Started on methadone to prevent withdrawal. - Can taper slowly. - Spoke with Psych Dr. Humphreys. - Will refer to Addiction clinic post discharge. hepatitis C - not treated due to active IV drug use. - Counseled on cessation. Stated that she will stop using all drugs post discharge. Anxiety - Started on Sertraline for MI with significant improvement in mood. disposition: due to active IVDU, pt will remain in ALC/SNF status until 4 weeks of iv antibiotics are completed. [facility] Vital Signs Date Time Temp Pulse Resp B/P (MAP) Pulse Ox O2 Delivery O2 Flow Rate FiO2 03/20/19 14:00 98.0 94 19 109/63 (78) 96 I&O- Last 24 Hours up to 6 AM 03/20/19 06:00 Intake Total 1247 ml Output Total 0 ml Balance 1247 ml Laboratory Data 24H LABS Laboratory Tests 2 03/20/19 11:08: Nucleated Red Blood Cells % (auto) 0.0, Anion Gap 9, Glomerular Filtration Rate > 60.0, Blood Urea Nitrogen 8, Creatinine 0.65, Sodium Level 138, Potassium Level 4.5, Chloride Level 104, Carbon Dioxide Level 25, Calcium Level 8.0L, Aspartate Amino Transf (AST/SGOT) 99H, Alanine Aminotransferase (ALT/SGPT) 172H, Alkaline Phosphatase 98, Total Bilirubin 0.2, Total Protein 6.6, Albumin 2.1L, Albumin/Globulin Ratio 0.47L, Vancomycin Level Trough 21.9H CBC/BMP Laboratory Tests 03/20/19 11:08 Red Blood Count 3.10 L, Mean Corpuscular Volume 95.2, Mean Corpuscular Hemoglobin 31.0, Mean Corpuscular Hemoglobin Concent 32.5, Red Cell Distribution Width 13.4, Calcium Level 8.0 L, Aspartate Amino Transf (AST/SGOT) 99 H, Alanine Aminotransferase (ALT/SGPT) 172 H, Alkaline Phosphatase 98, Total Bilirubin 0.2, Total Protein 6.6, Albumin 2.1 L Microbiology Microbiology 03/14/19 Blood Culture - Final, Complete NO GROWTH AFTER 5 DAYS 03/14/19 Blood Culture - Final, Complete NO GROWTH AFTER 5 DAYS 03/12/19 Blood Culture - Final, Complete Staph.aureus Methicillin Resis 03/12/19 Blood Culture - Final, Complete Staph.aureus Methicillin Resis 03/12/19 Blood Culture - Final, Complete Staph.aureus Methicillin Resis 03/12/19 Respiratory Virus Panel (PCR) ([facility]) - Final, Complete BECKY MARCH MD Mar 20, 2019 16:16
[2019-03-21] MEDS: KETOROLAC TROMETHAMINE 10 MG TAB PO PRN (22:24)
[2019-03-21] MEDS: SODIUM CHLORIDE 0.9% INJ 10 ML SYR IV PRN (23:51)
[2019-03-22] MEDS: VANCOMYCIN HCL 1,000 MG, VIAL MATE ADAPTER 1 EACH in D5W 250 ML IV SCH ×3 (03:30→21:15)
[2019-03-22] MEDS: SODIUM CHLORIDE 0.9% INJ 10 ML SYR IV SCH ×3 (04:33→23:46)
[2019-03-22 06:00] VITALS: BP 120/83
[2019-03-22] MEDS: NICOTINE 14 MG/24 HR TRANSDERMAL TD SCH (09:45)
[2019-03-22] MEDS: SERTRALINE HCL 25 MG TABLET PO SCH (09:47)
[2019-03-22] MEDS: KETOROLAC TROMETHAMINE 10 MG TAB PO PRN ×2 (09:47→17:32)
[2019-03-22] MEDS: MULTIVITAMINS/MINERALS THERAP 1 TAB PO SCH (09:47)
[2019-03-22] MEDS: LACTOBACILLUS ACIDOPHILUS CAP (BACID) PO SCH ×2 (09:47→17:31)
--- NOTE | 2019-03-22 10:03 | IPNPDOC ---
Date Seen The patient was seen on 03/22/19. Progress Note UBJECTIVE: Pt c/o "too many blood draws 3x today, " due to vanco dosing. Pt also requests down titration of her methadone. "Heroin addicts are afraid of methadone." Pt denies any pleuritic chest pain, sob, fever, chills, abd pain. She continues to have blurred vision which is not worse. No eye pain, discharge,scotomas, floaters, lighting flashes, or redness. Per Ophthalmology, Dr. Bryan, " Retinal hemorrhage consistent with Garcia spot and IV drug abuse. This will be monitored. Currently no intervention necessary. Patient is on IV antibiotics which is the appropriate treatment, reexamination in approximately 10 days to two weeks, unless the patient has any change in vision status." OBJECTIVE PHYSICAL EXAMINATION: VITAL SIGNS: Please see below. General: asleep,but easily arousable. no respiratory distress. Eyes: Normal sclera, EOMI, MELISSA. lids, lashes and adnexa are within normal limits.No conjunctival or scleral ecchymosis or petechia hemorrhages The cornea is clear. There is no hypopyon or corneal infiltrate. HENT: Atraumatic, neck supple, moist mucous membranes Cardiovascular: Normal rate, normal rhythm. Pulmonary: Clear to auscultation b/l GI: Soft, nontender, nondistended Skin: Warm and dry Neuro: CN grossly intact. No focal deficits. Strengths equal b/l. normal finger to nose testing. Psych: oriented x 3 LABORATORY DATA, IMAGING STUDIES, MICROBIOLOGY: Please see below. ASSESSMENT AND PLAN: 28 y/o female with history of polysubstance abuse, tobacco abuse, suicidal thoughts admitted for fever, cough, pleuritic chest pain, and found to have [place] valve tricuspid valve endocarditis due to drug abuse with garcia spots and retinal hemorrhages, s/p PICC line on IV vanco. ID consulted. [place] Valve Endocarditis in the setting of IVDU - Intermittent fevers, elevated ESR in setting of active IVDU with + blood cultures and ECHO findings suggestive of vegetations. - MRSA in 3 blood cultures. - c/w Vancomycin. - ECHO noted mass on anterior and posterior tricuspid valve. - ID consulted. - Given IV drug use, may not be a candidate for PICC line placement for IV abx outpatient, likely will require a prolong inpatient course although still need PICC due to difficult access. - L. eye blurry vision, Opthalmology consulted. -Per Ophthalmology, Dr. Bryan, " Retinal hemorrhage consistent with Garcia spot and IV drug abuse. This will be monitored. Currently no intervention necessary. Patient is on IV antibiotics which is the appropriate treatment, reexamination in approximately 10 days to two weeks, unless the patient has any change in vision status." Retinal Hemorrhages -consistent with septic emboli IVDU- related tricuspid valve endocarditis -with c/o left eye blurred vision -Per Ophthalmology, Dr. Bryan, " This will be monitored. Currently no intervention necessary. Patient is on IV antibiotics which is the appropriate treatment, reexamination in approximately 10 days to two weeks, unless the patient has any change in vision status." Pneumonia - s/p Abx course. - CT chest with patchy areas of infiltrate and focal consolidation. Hyponatremia - Hypovolemic. resolved with IVF resuscitation. Polysubstance abuse - IV heroin recent use. Started on methadone to prevent withdrawal. - Can taper slowly. - Spoke with Psych Dr. Humphreys. - Will refer to Addiction clinic post discharge. hepatitis C - not treated due to active IV drug use. - Counseled on cessation. Stated that she will stop using all drugs post discharge. Anxiety - Started on Sertraline for MI with significant improvement in mood. disposition: due to active IVDU, pt will remain in ALC/SNF status until 4 weeks of iv antibiotics are completed. VS, I&O, 24H, Fishbone VS, I&O, 24H, Fishbone Vital Signs/I&O Vital Signs Date Time Temp Pulse Resp B/P (MAP) Pulse Ox O2 Delivery O2 Flow Rate FiO2 03/22/19 06:00 97.7 80 96 120/83 (95) 98 I&O- Last 24 Hours up to 6 AM 03/22/19 06:00 Intake Total 2450 ml Output Total 0 ml Balance 2450 ml Laboratory Data 24H LABS Laboratory Tests 2 03/21/19 18:53: Vancomycin Level Trough 16.7 03/22/19 05:31: Microbiology Microbiology 03/14/19 Blood Culture - Final, Complete NO GROWTH AFTER 5 DAYS 03/14/19 Blood Culture - Final, Complete NO GROWTH AFTER 5 DAYS 03/12/19 Blood Culture - Final, Complete Staph.aureus Methicillin Resis 03/12/19 Blood Culture - Final, Complete Staph.aureus Methicillin Resis 03/12/19 Blood Culture - Final, Complete Staph.aureus Methicillin Resis 03/12/19 Respiratory Virus Panel (PCR) (NISA) - Final, Complete BECKY MARCH MD Mar 22, 2019 10:03
[2019-03-22 14:58] LABS: HEMATOCRIT 28.8 % (36.0-47.0); HEMOGLOBIN 9.3 g/dl (12.0-15.5); MEAN CORPUSCULAR HEMOGLOBIN 30.9 pg (27.0-33.0); MEAN CORPUSCULAR HGB CONC 32.3 g/dl (32.0-36.5); MEAN CORPUSCULAR VOLUME 95.7 fl (80.0-96.0); PLATELET COUNT, AUTOMATED 641 10^3/uL (150-450); RED BLOOD COUNT 3.01 10^6/uL (4.00-5.40); WHITE BLOOD COUNT 10.1 10^3/uL (4.0-10.0)
[2019-03-22 15:23] LABS: BLOOD UREA NITROGEN 12 MG/DL (7-18); CALCIUM LEVEL 8.2 MG/DL (8.5-10.1); CARBON DIOXIDE LEVEL 29 MEQ/L (21-32); CHLORIDE LEVEL 105 MEQ/L (98-107); CREATININE FOR GFR 0.71 MG/DL (0.55-1.30); GLOMERULAR FILTRATION RATE > 60.0 (>60); GLUCOSE, FASTING 101 MG/DL (70-100); POTASSIUM SERUM 4.3 MEQ/L (3.5-5.1); SODIUM LEVEL 140 MEQ/L (136-145)
[2019-03-22] MEDS: METHADONE 5 MG TAB (S0109) PO SCH (21:21)
[2019-03-22] MEDS: SODIUM CHLORIDE 0.9% INJ 10 ML SYR IV PRN (23:46)
[2019-03-23] MEDS: KETOROLAC TROMETHAMINE 10 MG TAB PO PRN ×4 (00:01→19:39)
[2019-03-23] MEDS: VANCOMYCIN HCL 1,000 MG, VIAL MATE ADAPTER 1 EACH in D5W 250 ML IV SCH ×3 (04:25→19:39)
[2019-03-23 06:00] VITALS: BP 141/61
[2019-03-23] MEDS: SODIUM CHLORIDE 0.9% INJ 10 ML SYR IV SCH ×2 (06:02→17:46)
[2019-03-23] MEDS: LACTOBACILLUS ACIDOPHILUS CAP (BACID) PO SCH ×2 (08:29→17:46)
[2019-03-23] MEDS: SERTRALINE HCL 25 MG TABLET PO SCH (08:29)
[2019-03-23] MEDS: NICOTINE 14 MG/24 HR TRANSDERMAL TD SCH (08:30)
[2019-03-23] MEDS: MULTIVITAMINS/MINERALS THERAP 1 TAB PO SCH (08:30)
[2019-03-23 12:11] LABS: VANCOMYCIN LEVEL TROUGH 16.6 UG/ML (10.0-20.0)
[2019-03-23 12:40] LABS: HCG, SERUM QUANTITATIVE < 1.0 MIU/ML
[2019-03-23 12:46] LABS: URINE PREG TEST NEGATIVE (NEGATIVE)
--- NOTE | 2019-03-23 18:41 | IPN ---
DATE: 03/23/2019 Paula is seen on bedside rounds this morning. She appears to be well. She states that the chest pain that she was previously complaining of earlier this week has now disappeared. She does have a little bit of pain in the right axillary thoracic region; however, the chest pain is now gone. She states that she feels much better. She is denying any nausea, vomiting, or abdominal pain. She is denying any fevers or chills. Her cough is much better, as is her shortness of breath. PHYSICAL EXAMINATION: VITAL SIGNS: Temperature 97.7, pulse 74, respiratory rate 19, blood pressure is 141/61 with a pulse oximetry 99% on room air. GENERAL: This is a 28-year-old female who appears her stated age. She is lying in bed. She is comfortable. She is speaking in complete sentences in no acute distress. HEENT: Extraocular muscles intact (EOMI). Moist mucous membranes. There is no jugular venous distention (JVD) that is appreciated. She does report some left decreased visual acuity and a darkening sensation. CARDIAC: Normal S1 and S2. There are no rubs or gallops appreciated; however, there is a faint, possibly +1 systolic murmur appreciated. RESPIRATORY: There is no wheezing, rales, or rhonchi appreciated. She appears clear to auscultation. ABDOMEN: Normoactive bowel sounds times four. There is no hepatosplenomegaly or masses appreciated. There is no rebound, rigidity, or guarding. There is no pain to palpation. There is no distention. EXTREMITIES: There is no cyanosis. There is no mottling or edema appreciated. LABORATORY DATA: It does not appear that a CBC was ordered today, nor was a BMP. Her blood cultures from March 14 have shown no growth after 5 days. MEDICATIONS: - methadone 2.5 mg nightly - Toradol 10 mg every 6 hours as needed - She is on vancomycin 1 gram every 8 hours. - She receives heparin through her peripherally inserted central catheter (PICC) line. 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 Her shortness of breath and pleuritic chest pain is much better today. This was highly suggestive of likely septic emboli to her lungs. She is currently on intravenous (IV) vancomycin right now through her PICC. She does have a history of IV drug abuse and chronic hepatitis C that has been untreated. PLAN: The patient has told us that she does not want a PICC line to go home. She does not trust herself that she will not use drugs through it. We were initially going to try to send her home with by mouth antibiotics, Dalvance; however, it was noted that she was having some left eye vision changes. She was seen by ophthalmology, Dr. Bryan, who diagnosed her with retinal hemorrhage. This is a little bit strange, as her vegetative growth from echo that was performed on March 12 showed vegetative growth on the tricuspid but no growth on the left side of the heart. As such, we have reached out to Dr. Kelley and have requested a transesophageal echocardiogram that will hopefully be performed tonight. The patient is now nothing by mouth, but she is allowed sips of water only with her medications. It is possible that she could have a left-sided vegetative growth as the right side vegetative growth that possibly may have been missed when her initial transthoracic echocardiogram was done on March 12. She does tell us that her mother is coming in today, and we would like to speak with her mother. We have let nursing staff know to notify us once her mother is here. If she should have vegetative growth on the left side of her heart in addition to the one on her tricuspid valve, she would not qualify for by mouth antibiotics. She would have to remain on IV antibiotics. As such, this transesophageal echocardiogram could definitely change her clinical course. We will await the results of the transesophageal echocardiogram before making further recommendations. We will let the primary team know. My faculty preceptor for this patient encounter was physically present during the encounter and was fully available. All aspects of the patient interview, examination, medical decision making process, and medical care plan development were reviewed and approved by the faculty preceptor. The faculty preceptor is aware and concurs with the plan as stated in the body of this note and will attest to such by his/her co-signature.
[2019-03-23] MEDS: METHADONE 5 MG TAB (S0109) PO SCH (21:27)
[2019-03-24] MEDS: VANCOMYCIN HCL 1,000 MG, VIAL MATE ADAPTER 1 EACH in D5W 250 ML IV SCH ×3 (04:17→20:31)
[2019-03-24] MEDS: KETOROLAC TROMETHAMINE 10 MG TAB PO PRN ×3 (04:41→20:43)
[2019-03-24 06:00] VITALS: BP 128/78
[2019-03-24] MEDS: SODIUM CHLORIDE 0.9% INJ 10 ML SYR IV SCH ×2 (06:00→17:18)
[2019-03-24] MEDS: LACTOBACILLUS ACIDOPHILUS CAP (BACID) PO SCH ×2 (09:24→17:18)
[2019-03-24] MEDS: SERTRALINE HCL 25 MG TABLET PO SCH (09:24)
[2019-03-24] MEDS: MULTIVITAMINS/MINERALS THERAP 1 TAB PO SCH (09:24)
[2019-03-24] MEDS: NICOTINE 14 MG/24 HR TRANSDERMAL TD SCH (09:25)
[2019-03-24 10:00] VITALS: BP 130/67
[2019-03-24] MEDS: SODIUM CHLORIDE 0.9% INJ 10 ML SYR IV PRN ×2 (12:24→22:10)
[2019-03-24 13:54] VITALS: BP 136/77
[2019-03-24] MEDS: METHADONE 5 MG TAB (S0109) PO SCH (20:31)
[2019-03-24 20:36] VITALS: BP 138/86
[2019-03-25] MEDS: VANCOMYCIN HCL 1,000 MG, VIAL MATE ADAPTER 1 EACH in D5W 250 ML IV SCH ×3 (04:15→19:37)
[2019-03-25] MEDS: KETOROLAC TROMETHAMINE 10 MG TAB PO PRN ×3 (04:24→19:37)
[2019-03-25] MEDS: SODIUM CHLORIDE 0.9% INJ 10 ML SYR IV SCH ×2 (05:36→17:53)
[2019-03-25 06:00] VITALS: BP 114/74
[2019-03-25] MEDS: SERTRALINE HCL 25 MG TABLET PO SCH (08:31)
[2019-03-25] MEDS: LACTOBACILLUS ACIDOPHILUS CAP (BACID) PO SCH ×2 (08:31→17:52)
[2019-03-25] MEDS: NICOTINE 14 MG/24 HR TRANSDERMAL TD SCH (08:32)
[2019-03-25] MEDS: MULTIVITAMINS/MINERALS THERAP 1 TAB PO SCH (08:32)
[2019-03-25] MEDS: SODIUM CHLORIDE 0.9% INJ 10 ML SYR IV PRN (19:37)
[2019-03-26] MEDS: VANCOMYCIN HCL 1,000 MG, VIAL MATE ADAPTER 1 EACH in D5W 250 ML IV SCH ×3 (04:00→20:46)
[2019-03-26] MEDS: SODIUM CHLORIDE 0.9% INJ 10 ML SYR IV SCH ×2 (05:16→16:58)
[2019-03-26 06:00] VITALS: BP 113/70
[2019-03-26] MEDS: SERTRALINE HCL 25 MG TABLET PO SCH (08:33)
[2019-03-26] MEDS: LACTOBACILLUS ACIDOPHILUS CAP (BACID) PO SCH ×2 (08:33→16:57)
[2019-03-26] MEDS: MULTIVITAMINS/MINERALS THERAP 1 TAB PO SCH (08:33)
[2019-03-26] MEDS: NICOTINE 14 MG/24 HR TRANSDERMAL TD SCH (08:34)
[2019-03-26] MEDS: KETOROLAC TROMETHAMINE 10 MG TAB PO PRN ×2 (11:08→17:19)
--- NOTE | 2019-03-26 13:04 | REP ---
PICC line insertion under ultrasound guidance. The procedure was performed by OLEG Guaman, under the direct supervision of Dr. Marte. The risks and benefits of the procedure were explained to the patient and informed consent was obtained the verbally and written. Directly prior to the start of the procedure, a formal timeout was completed in the procedure room. The right medial brachial vein was localized using ultrasound guidance. The skin was prepped and draped in the sterile fashion. 3 ml 1% lidocaine was used as a local anesthetic. Using ultrasound guidance the right medial brachial vein was cannulated and a 0.018 guidewire was inserted and advanced to the SVC using fluoroscopic guidance. The needle was removed and a 4.5 Croatian dilator and peel-away sheath was inserted over the guidewire. A 4.5 [place] single lumen catheter was cut to the length of 40 cm. The dilator was removed and the catheter was inserted over the guide wire with the tip ending in the SVC. The peel-away sheath was removed and the catheter was flushed with heparinized saline as per hospital protocol. The catheter was affixed to the skin and a sterile dressing was applied. The patient tolerated the procedure well and there were no immediate complications. 0.1 minutes of fluoroscopy time was utilized for this procedure. Some fluoroscopic images are performed with last image hold technology. These images require no additional radiation. Reviewed by OLEG Vyas 03/19/2019 05:21 P Electronically Signed by Luis Marte MD 03/26/2019 12:54 P
[2019-03-26 14:49] LABS: HEMATOCRIT 28.2 % (36.0-47.0); HEMOGLOBIN 9.1 g/dl (12.0-15.5); MEAN CORPUSCULAR HEMOGLOBIN 30.7 pg (27.0-33.0); MEAN CORPUSCULAR HGB CONC 32.3 g/dl (32.0-36.5); MEAN CORPUSCULAR VOLUME 95.3 fl (80.0-96.0); PLATELET COUNT, AUTOMATED 666 10^3/uL (150-450); RED BLOOD COUNT 2.96 10^6/uL (4.00-5.40); WHITE BLOOD COUNT 7.8 10^3/uL (4.0-10.0)
[2019-03-26 15:03] LABS: BLOOD UREA NITROGEN 13 MG/DL (7-18); CALCIUM LEVEL 8.8 MG/DL (8.5-10.1); CARBON DIOXIDE LEVEL 28 MEQ/L (21-32); CHLORIDE LEVEL 104 MEQ/L (98-107); CREATININE FOR GFR 0.82 MG/DL (0.55-1.30); GLOMERULAR FILTRATION RATE > 60.0 (>60); GLUCOSE, FASTING 93 MG/DL (70-100); POTASSIUM SERUM 4.2 MEQ/L (3.5-5.1); SODIUM LEVEL 139 MEQ/L (136-145)
--- NOTE | 2019-03-26 18:05 | IPN ---
DATE: 03/26/2019 Paula is seen on bedside rounds this afternoon. She appears to be well and in good spirits. She denies having anymore of the chest pain that she was describing last week. She does unfortunately still have the left eye vision changes. She states that they are not really worsened since last week but they also have not greatly improved either. She further explains that her left eye she feels like her vision is darker on that side and perhaps a little bit blurrier. Otherwise, she is denying any nausea, vomiting or abdominal pain. There are no fevers or chills. She is not short of breath and she denies having any further cough. She states that she did not want to have her transesophageal echocardiogram done last week because she was very hungry and was in a bad mood. PHYSICAL EXAMINATION: VITAL SIGNS: Temperature 98, pulse of 80, respiratory rate of 18, blood pressure 113/70, pulse oximetry is 97%. GENERAL: This is a 28-year-old female in no acute distress. She is laying in bed comfortably and speaking in complete sentences. HEENT: Extraocular muscles are intact. The patient does report some blurriness of the left eye with some decreased visual acuity secondary to a darkening of her left visual field. She has no jugular venous distention (JVD). CARDIAC: Normal S1, S2. There are no rubs or gallops appreciated. She does have a faint systolic murmur. RESPIRATORY: There is no wheezing, rales or rhonchi appreciated. She is clear to auscultation. ABDOMEN: Normoactive bowel sounds times four. There is no hepatosplenomegaly or masses appreciated. There is no rebound, rigidity or guarding. No pain to palpation. There is no distension. EXTREMITIES: No cyanosis, mottling or edema appreciated. LABORATORY DATA: WBC 7.8, hemoglobin and hematocrit 9.1 and 28.2 respectively, platelet count 666. Sodium is 139, potassium is 4.2, chloride is 104, bicarbonate is 28, BUN and creatinine is 13 and 0.82 respectively, last CRP was 4.86 which was done 03/23/2019, and ESR of 109. Blood cultures from 03/14/2019 times two sets have shown no growth after five days. Past cultures from 03/12/2019 times three were positive for MRSA. MEDICATIONS: She is on Toradol 10 mg every six hours for pain. She is on vancomycin 1 gram every eight hours. She received heparin flushes through her peripherally inserted central catheter (PICC) line. She is on Bacid, multivitamin, Zoloft 25 mg daily, Nicoderm patch, Colace 100 mg twice a day as needed for constipation, and TUMS. 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 The patient's cough, shortness of breath and pleuritic chest pain seems to have resolved today. She does likely have septic emboli to her lungs. She is currently receiving IV vancomycin through her peripherally inserted central catheter (PICC). PLAN: The patient had initially refused a transesophageal echocardiogram last week, a transesophageal echocardiogram (BRITTANY) was deemed important to have as the patient was having left-sided visual problems. We wanted to rule out a left-sided source for the endocarditis. She is now agreeable to have a BRITTANY again, as such she is scheduled to have this tomorrow afternoon. She is to be nothing by mouth after 7:30 a.m. tomorrow morning. We were initially going to try to send her home with by mouth antibiotics, Dalvance. However, if it is found that she does have a left-sided foci for her endocarditis in addition to her right-sided foci, she will need continued IV antibiotics. It is possible that she could have a left-sided vegetative growth in addition to the right-sided vegetative growth that could have been missed when her initial transthoracic echocardiogram was done 03/12/2019.
[2019-03-26] MEDS: SODIUM CHLORIDE 0.9% INJ 10 ML SYR IV PRN (20:46)
[2019-03-26 22:00] VITALS: BP 110/70
[2019-03-26] MEDS ORDERED: ACETAMINOPHEN TAB 650MG DOSE (2X325MG) PO PRN (22:30)
[2019-03-26] MEDS ORDERED: GABAPENTIN 100 MG CAP PO ONE (23:15)
[2019-03-27] MEDS: VANCOMYCIN HCL 1,000 MG, VIAL MATE ADAPTER 1 EACH in D5W 250 ML IV SCH ×3 (04:15→21:28)
[2019-03-27] MEDS: SODIUM CHLORIDE 0.9% INJ 10 ML SYR IV SCH ×2 (05:53→18:43)
[2019-03-27 06:00] VITALS: BP 126/68
[2019-03-27 08:55] VITALS: BP 133/70
[2019-03-27] MEDS: MULTIVITAMINS/MINERALS THERAP 1 TAB PO SCH (10:02)
[2019-03-27] MEDS: SERTRALINE HCL 25 MG TABLET PO SCH (10:02)
[2019-03-27] MEDS: LACTOBACILLUS ACIDOPHILUS CAP (BACID) PO SCH ×2 (10:02→21:28)
[2019-03-27] MEDS: NICOTINE 14 MG/24 HR TRANSDERMAL TD SCH (10:02)
[2019-03-27] MEDS ORDERED: METHADONE 5 MG TAB (S0109) PO ONE (11:45)
--- NOTE | 2019-03-27 12:41 | IPNPDOC ---
Text Note Date of Service The patient was seen on 03/27/19. NOTE S: patient being seen for endocarditis. Is due to repeat BRITTANY today. Patient requested RAPID taper off methadone (last dose on 03/23) and does not want any opioid, suboxone or naltrexone medications. She is complaining of pain to right chest /rib area and states relief with gabapentin. She is past opioid withdraw (last use 3 days prior to admission). She states going stir crazy sitting in room and having intrusive thoughts about using. Denies N,V or diaphoresis. Denies SOB. no vision changes O: Vitals as below General: pleasant, mild distress (rocking in bed, tremor) HRRR LCTA Ext no edema A/P: 28 y/o female with history of polysubstance abuse, tobacco abuse, suicidal thoughts admitted for fever, cough, pleuritic chest pain, and found to have [place] valve tricuspid valve endocarditis due to drug abuse with garcia spots and retinal hemorrhages, s/p PICC line on IV vanco. ID consulted. Currently in ALS/SNF status 1) [place] Valve Endocarditis in the setting of IVDU (MRSA bacteremia) Repeat BRITTANY today for further delination of antibiotic treatment per ID. Continue with vancomycin and monitor levels 2) Retinal Hemorrhages -consistent with septic emboli IVDU- related tricuspid valve endocarditis -with c/o left eye blurred vision -Per Ophthalmology, Dr. Bryan, - no intervention necessary. Continue IV antibiotics. Follow up with EYE exam this week 3) Pneumonia - s/p Abx course. - CT chest with patchy areas of infiltrate and focal consolidation. 4) Hyponatremia - Hypovolemic. resolved with IVF resuscitation. 5) Polysubstance abuse - IV heroin recent use. Patient refusing methadone and rapid taper completed (per patient preference). Last dose on 03/23. Discussed with patient the benefit of slow methadone taper for her heroin/opioid addiction but she is refusing methadone. Has agreed to prn gabapentin. Patient states she will use tylenol when discharged (advised against due to hepatitis) - Will refer to Addiction clinic post discharge. 6) hepatitis C - not treated due to active IV drug use. - Counseled on cessation. Stated that she will stop using all drugs post discharge. - check LFT in AM 7) Anxiety - Started on Sertraline for MI with significant improvement in mood. disposition: due to active IVDU, pt will remain in ALC/SNF status until 4-6 weeks of iv antibiotics are completed. Await ID recommendations post BRITTANY VS,Pankaje, I+O VS, Fishtyrone, I+O Laboratory Tests 03/26/19 14:32 Red Blood Count 2.96 L, Mean Corpuscular Volume 95.3, Mean Corpuscular He moglobin 30.7, Mean Corpuscular Hemoglobin Concent 32.3, Red Cell Distribution Width 12.7, Calcium Level 8.8 Vital Signs Date Time Temp Pulse Resp B/P (MAP) Pulse Ox O2 Delivery O2 Flow Rate FiO2 03/27/19 08:55 98.4 91 18 133/70 (91) 100 I&O- Last 24 Hours up to 6 AM 03/27/19 05:59 Intake Total 1690 ml Output Total 0 ml Balance 1690 ml JENNIFER MORENO DO Mar 27, 2019 12:41
[2019-03-27] MEDS: GABAPENTIN 100 MG CAP PO PRN ×2 (13:42→22:47)
[2019-03-27 15:45] VITALS: BP 126/83
--- NOTE | 2019-03-27 17:56 | IPN ---
DATE: 03/27/2019 Paula Easley is a little upset because her transthoracic echocardiogram (BRITTANY) has been postponed to later today and she is very hungry. She is off methadone. The patient gets very emotional at times and angry and I discussed with her whether she had an underlying mental health diagnosis or bipolar disorder. The patient got upset but agrees on seeing the psychiatrist who already saw her earlier this admission. Her shortness of breath is better. PHYSICAL EXAMINATION: Temperature is 97.9, pulse 93, respirations 26, blood pressure 126/83, oxygen saturation 99% on room air. HEENT: Left eye: Blurry vision. No redness. HEART: Normal S1, S2 with a gallop, systolic ejection murmur 2/6. LUNGS: Diminished at bases but clear. No wheezes, rales, or rhonchi. ABDOMEN: Soft, nontender. No hepatosplenomegaly. EXTREMITIES: No edema. LABORATORY DATA: White count is 7.8, hemoglobin 9.1, hematocrit 28.2, platelets 666. ESR 109. Sodium 139, potassium 4.2, chloride 104, bicarbonate 28, BUN 13, creatinine 0.82, glucose 93, calcium 8.8. Blood cultures from 03/12/2019, two sets three sets are positive for MRSA and 03/14/2019 negative. IMPRESSION: 1. Methicillin-resistant Staphylococcus aureus (MRSA) tricuspid valve endocarditis, on IV vancomycin. Transesophageal echocardiogram (BRITTANY) scheduled today. 2. Retinal hemorrhage consistent with septic emboli, concerning for left-sided endocarditis and therefore transesophageal echocardiogram will better give us an idea whether she has right and left-sided endocarditis. 3. Pneumonia, most likely septic emboli from right-sided endocarditis, on IV vancomycin. 4. Polysubstance abuse. Patient off methadone and is agreeable to seeing psychiatrist in followup to discuss any mental health issues and anxiety. Patient currently on sertraline. PLAN: Continue IV vancomycin. Further treatment will depend on results of transesophageal echocardiogram (BRITTANY), on IV vancomycin 1 gram every eight hours. We will obtain a followup chest x-ray, posteroanterior (PA) and lateral in the morning.
--- NOTE | 2019-03-27 18:40 | MHIPNPDOC ---
[facility] Progress Note Progress Note Attempted to meet with patient today to do requested follow up by Dr. Negron, however, the patient was pending being taken to BRITTANY and reported that she was very irritable as she had to be fasting, discussed meeting with her tomorrow or later this week, which she was amenable. Current Medications Current Medications Acetaminophen (Tylenol Tab) 650 mg Q4HP PRN PO PAIN Last administered on 03/26/19at 22:44; Start 03/26/19 at 22:30; Stop 03/26/19 at 23:08; Status DC Acetaminophen (Tylenol Tab) 650 mg Q6HP PRN PO PAIN / FEVER Last administered on 03/13/19at 11:29; Start 03/13/19 at 05:00; Stop 03/13/19 at 16:20; Status DC Acetaminophen (Tylenol Tab) 650 mg Q6HP PRN PO PAIN / FEVER Last administered on 03/15/19at 20:43; Start 03/15/19 at 20:30; Stop 03/16/19 at 10:22; Status DC Azithromycin 500 mg/IV Miscellaneous Supplies 1 each/ Dextrose 255 ml @ 255 mls/hr Q24H IV Last administered on 03/18/19at 01:54; Start 03/13/19 at 02:00; Stop 03/18/19 at 13:16; Status DC Calcium Carbonate (Tums) 500 mg BID PRN PO INDIGESTION Last administered on 03/15/19at 19:51; Start 03/13/19 at 18:15 Ceftriaxone Sodium 1 gm/ Dextrose 50 ml @ 100 mls/hr Q24H IV Last administered on 03/18/19at 04:33; Start 03/13/19 at 04:00; Stop 03/18/19 at 13:16; Status DC Docusate Sodium (Colace) 100 mg BIDP PRN PO CONSTIPATION; Start 03/14/19 at 19:15 Enoxaparin Sodium (Lovenox) 40 mg DAILY SC ; Start 03/13/19 at 09:00; Stop 03/20/19 at 14:03; Status DC Gabapentin (Neurontin) 100 mg TID PRN PO pain Last administered on 03/27/19at 13:42; Start 03/27/19 at 12:30 Heparin Sodium (Heparin (Flush)) 200 units ASDIRECTED PRN IV SEE LABEL COMMENTS Last administered on 03/25/19at 19:38; Start 03/19/19 at 18:15 Heparin Sodium (Heparin (Flush)) 200 units PICC IV Last administered on 03/27/19at 05:53; Start 03/20/19 at 06:00 Home Med (Med Rec Complete!) ASDIRECTED XX ; Start 03/12/19 at 22:15; Stop 03/12/19 at 22:15; Status DC Ibuprofen (Advil) 600 mg Q6HP PRN PO fever and pain Last administered on 03/15/19at 12:02; Start 03/14/19 at 17:00; Stop 03/15/19 at 13:25; Status DC Ketorolac Tromethamine (ToRADol) 10 mg Q6HP PRN PO PAIN Last administered on 03/26/19at 17:19; Start 03/21/19 at 22:00; Stop 03/26/19 at 21:59; Status DC Ketorolac Tromethamine (ToRADol) 10 mg Q6HP PRN PO PAIN Last administered on 03/19/19 21:09; Start 03/18/19 at 15:45; Stop 03/20/19 at 14:00; Status DC Ketorolac Tromethamine (ToRADol) 15 mg Q6HP PRN IV PAIN Last administered on 03/18/19 14:46; Start 03/15/19 at 13:30; Stop 03/18/19 at 15:45; Status DC Ketorolac Tromethamine (ToRADol) 30 mg Q6H IV Last administered on 03/21/19at 11:32; Start 03/21/19 at 00:00; Stop 03/21/19 at 14:21; Status DC Lactobacillus Acidophilus (Bacid) 1 ea BIDWM PO Last administered on 03/27/19 10:02; Start 03/19/19 at 12:30 Methadone HCl (Dolophine) 2.5 mg QHS PO Last administered on 03/24/19 20:31; Start 03/22/19 at 21:00; Stop 03/24/19 at 21:01; Status DC Methadone HCl (Dolophine) 5 mg QHS PO Last administered on 03/21/19at 19:44; Start 03/18/19 at 21:00; Stop 03/22/19 at 10:04; Status DC Methadone HCl (Dolophine) 7.5 mg QHS PO Last administered on 03/17/19at 22:05; Start 03/16/19 at 21:00; Stop 03/18/19 at 13:24; Status DC Methadone HCl (Dolophine) 10 mg QHS PO ; Start 03/15/19 at 21:00; Stop 03/15/19 at 21:00; Status DC Methadone HCl (Dolophine) 10 mg QHS PO ; Start 03/16/19 at 21:00; Stop 03/16/19 at 21:00; Status DC Methadone HCl (Dolophine) 15 mg DAILY PO Last administered on 03/15/19at 08:03; Start 03/14/19 at 09:00; Stop 03/15/19 at 14:09; Status DC Morphine Sulfate (Morphine Sulfate Inj) 1 mg Q4HP PRN IV severe pain; Start 03/13/19 at 20:15; Stop 03/15/19 at 13:17; Status DC Morphine Sulfate (Morphine Sulfate Inj) 2 mg Q4HP PRN IV severe pain; Start 03/13/19 at 18:00; Stop 03/13/19 at 20:14; Status DC Multivitamins (Theragram-M) 1 tab DAILY PO Last administered on 03/27/19at 10:02; Start 03/19/19 at 11:00 Nicotine (Nicoderm Cq 14mg) 1 patch DAILY TD Last administered on 03/27/19at 10:02; Start 03/15/19 at 09:00 Ondansetron HCl (ZOFRAN INJection) 4 mg Q6HP PRN IV NAUSEA OR VOMITING Last administered on 03/13/19at 03:16; Start 03/13/19 at 03:15; Stop 03/13/19 at 20:12; Status DC Oxycodone HCl (Roxicodone, Oxyir) 5 mg Q4HP PRN PO PAIN; Start 03/13/19 at 02:45; Stop 03/13/19 at 03:00; Status DC Oxycodone HCl (Roxicodone, Oxyir) 10 mg Q4HP PRN PO SEVERE PAIN (PS 8-10); Start 03/13/19 at 02:45; Stop 03/13/19 at 03:00; Status DC Sertraline HCl (Zoloft) 25 mg DAILY PO Last administered on 03/27/19at 10:02; Start 03/16/19 at 11:45 Sodium Chloride 1,000 ml @ 75 mls/hr [id number] IV Last administered on 03/15/19at 04:09; Start 03/12/19 at 23:30; Stop 03/15/19 at 14:07; Status DC Sodium Chloride (Saline Lock Flush) 10 ml ASDIRECTED PRN IV SEE LABEL COMMENTS Last administered on 03/26/19at 20:46; Start 03/19/19 at 18:15 Sodium Chloride (Saline Lock Flush) 10 ml PICC IV Last administered on 03/27/19at 05:53; Start 03/20/19 at 06:00 Tramadol HCl (Ultram) 50 mg Q8HP PRN PO MODERATE PAIN (PS 5-7); Start 03/16/19 at 18:30; Status Cancel Vancomycin HCl 750 mg/IV Miscellaneous Supplies 1 each/ Dextrose 275 ml @ 275 mls/hr Q6H IV Last administered on 03/20/19at 14:31; Start 03/20/19 at 14:00; Stop 03/20/19 at 16:26; Status DC Vancomycin HCl 1000 mg/IV Miscellaneous Supplies 1 each/ Dextrose 270 ml @ 270 mls/hr Q6H IV Last administered on 03/14/19at 05:37; Start 03/14/19 at 06:00; Stop 03/14/19 at 09:46; Status DC Vancomycin HCl 1000 mg/IV Miscellaneous Supplies 1 each/ Dextrose 270 ml @ 270 mls/hr Q6H IV Last administered on 03/20/19at 06:03; Start 03/14/19 at 12:00; Stop 03/20/19 at 11:58; Status DC Vancomycin HCl 1000 mg/IV Miscellaneous Supplies 1 each/ Dextrose 270 ml @ 270 mls/hr Q8H IV Last administered on 03/13/19at 22:38; Start 03/13/19 at 06:00; Stop 03/13/19 at 23:59; Status DC Vancomycin HCl 1000 mg/IV Miscellaneous Supplies 1 each/ Dextrose 270 ml @ 270 mls/hr Q8H IV Last administered on 03/27/19at 12:37; Start 03/20/19 at 20:00 Allergies Coded Allergies: No Known Allergies (Unverified , 06/03/17) MÓNICA PENA DO Mar 27, 2019 18:40
[2019-03-27] MEDS ORDERED: fentaNYL 100 MCG/2 ML INJECTION (J3010) As Ordered ONE (19:37)
[2019-03-27] MEDS ORDERED: PROPOFOL 200 MG/20 ML VIAL As Ordered ONE ×2 (19:37→20:00)
[2019-03-27] MEDS ORDERED: MIDAZOLAM INJ 2 MG/2 ML VIAL (J2250) As Ordered ONE (19:37)
[2019-03-27] MEDS: SODIUM CHLORIDE 0.9% INJ 10 ML SYR IV PRN (21:28)
[2019-03-27 21:30] VITALS: BP 136/80
[2019-03-27 22:00] VITALS: BP 127/82
[2019-03-27] MEDS: LR 1,000 ML IV SCH (22:42)
[2019-03-27 23:00] VITALS: BP 124/81
--- NOTE | 2019-03-27 23:19 | T-ECHO ---
DATE OF PROCEDURE: 03/27/2019 REFERRING PHYSICIAN: Dr. Roxy Negron INDICATION: Tricuspid valve infective endocarditis with methicillin-resistant Staphylococcus aureus (MRSA). PREPROCEDURE DIAGNOSIS: Tricuspid valve infective endocarditis (MRSA). POSTOPERATIVE DIAGNOSIS: Tricuspid valve infective endocarditis (MRSA). PRINCIPAL FINDINGS: Normal transesophageal echocardiogram. No vegetations. PROCEDURE PERFORMED BY: Nadeem Kelley MD PATENT EXAMINER: None. IV SEDATION: Propofol per [facility] PROCEDURE DESCRIPTION: Rhythm was sinus. Esophageal intubation was accomplished without difficulty using a Colleen three-dimensional transesophageal echocardiogram probe. Cetacaine spray was used to the back of the pharynx for reduction of gag reflex. The left and right ventricles were normal in size and systolic function. Atria appeared to be normal in size. Atrial septum was intact anatomically and by color flow Doppler. No evidence of patent ductus arteriosus or atrial septal defect (ASD) by color flow Doppler. Tricuspid valve was structurally normal with very mild tricuspid regurgitation, within normal limits. Mitral leaflets were structurally normal with very mild mitral regurgitation, within normal limits. Aortic valve was 3-cusp and was structurally and functionally normal. Pulmonic valve was structurally and functionally normal. No vegetations were identified. The tip of the peripherally inserted central catheter (PICC) line was seen at the junction of the superior vena cava with the right atrium. No pericardial effusion. Distal aortic arch and descending thoracic aorta were normal. CONCLUSIONS: 1. Normal transesophageal echocardiogram. 2. Presence of a PICC line with the tip at the junction of the superior vena cava with the right atrium. 3. No vegetations.
[2019-03-28 02:00] VITALS: BP 127/74
[2019-03-28] MEDS: VANCOMYCIN HCL 1,000 MG, VIAL MATE ADAPTER 1 EACH in D5W 250 ML IV SCH ×2 (03:43→11:29)
[2019-03-28] MEDS: SODIUM CHLORIDE 0.9% INJ 10 ML SYR IV SCH ×2 (05:56→17:15)
[2019-03-28 06:00] VITALS: BP 121/71
[2019-03-28] MEDS ORDERED: LevoFLOXacin 750 MG TABLET PO SCH (06:00)
[2019-03-28 06:21] LABS: HEMATOCRIT 27.5 % (36.0-47.0); HEMOGLOBIN 8.7 g/dl (12.0-15.5); MEAN CORPUSCULAR HEMOGLOBIN 30.1 pg (27.0-33.0); MEAN CORPUSCULAR HGB CONC 31.6 g/dl (32.0-36.5); MEAN CORPUSCULAR VOLUME 95.2 fl (80.0-96.0); PLATELET COUNT, AUTOMATED 589 10^3/uL (150-450); RED BLOOD COUNT 2.89 10^6/uL (4.00-5.40)
[2019-03-28 06:45] LABS: ALBUMIN 2.3 GM/DL (3.2-5.2); ALT/SGPT 65 U/L (12-78); BILIRUBIN,TOTAL 0.2 MG/DL (0.2-1.0); BLOOD UREA NITROGEN 11 MG/DL (7-18); C REACTIVE PROTEIN QUANTITATIV 2.26 MG/DL (0.00-0.30); CALCIUM LEVEL 8.2 MG/DL (8.5-10.1); CARBON DIOXIDE LEVEL 30 MEQ/L (21-32); CHLORIDE LEVEL 107 MEQ/L (98-107); CREATININE FOR GFR 0.68 MG/DL (0.55-1.30); GLOMERULAR FILTRATION RATE > 60.0 (>60); GLUCOSE, FASTING 105 MG/DL (70-100); POTASSIUM SERUM 3.9 MEQ/L (3.5-5.1); SODIUM LEVEL 140 MEQ/L (136-145); TOTAL PROTEIN 7.5 GM/DL (6.4-8.2)
[2019-03-28] MEDS: LACTOBACILLUS ACIDOPHILUS CAP (BACID) PO SCH ×2 (08:30→17:14)
[2019-03-28] MEDS: MULTIVITAMINS/MINERALS THERAP 1 TAB PO SCH (08:30)
[2019-03-28] MEDS: SERTRALINE HCL 25 MG TABLET PO SCH (08:30)
[2019-03-28] MEDS: LR 1,000 ML IV SCH (08:31)
[2019-03-28] MEDS: NICOTINE 14 MG/24 HR TRANSDERMAL TD SCH (08:31)
[2019-03-28] MEDS: GABAPENTIN 100 MG CAP PO PRN (09:20)
[2019-03-28 10:00] VITALS: BP 120/79
--- NOTE | 2019-03-28 10:43 | MHIPNPDOC ---
[facility] Progress Note Progress Note Attempted to follow up on patient, however, she has been discharged with no notice given to this provider, initially attempted to check on progress at the request of Dr. Negron due to some mood variation, however, she declined at the time with no noted safety issues from patient or staff, asked to be followed up on another day. date attempted for follow up 03/29 Vital Signs Vital Signs Date Time Temp Pulse Resp B/P (MAP) Pulse Ox O2 Delivery O2 Flow Rate FiO2 03/28/19 10:00 97.5 93 16 120/79 (93) 100 Laboratory Data 24H Labs Laboratory Tests 2 03/28/19 06:06: Nucleated Red Blood Cells % (auto) 0.0, Anion Gap 3L, Glomerular Filtration Rate > 60.0, Blood Urea Nitrogen 11, Creatinine 0.68, Sodium Level 140, Potassium Level 3.9, Chloride Level 107, Carbon Dioxide Level 30, Calcium Level 8.2L, Aspartate Amino Transf (AST/SGOT) 33, Alanine Aminotransferase (ALT/SGPT) 65, Alkaline Phosphatase 76, Total Bilirubin 0.2, Total Protein 7.5, Albumin 2.3L, C-Reactive Protein, Quantitative 2.26H, Albumin/Globulin Ratio 0.44L 03/28/19 06:07: Erythrocyte Sedimentation Rate 128H CBC/BMP Laboratory Tests 03/28/19 06:06 Red Blood Count 2.89 L, Mean Corpuscular Volume 95.2, Mean Corpuscular Hemoglobin 30.1, Mean Corpuscular Hemoglobin Concent 31.6 L, Red Cell Distribution Width 12.7, Calcium Level 8.2 L, Aspartate Amino Transf (AST/SGOT) 33, Alanine Aminotransferase (ALT/SGPT) 65, Alkaline Phosphatase 76, Total Bilirubin 0.2, Total Protein 7.5, Albumin 2.3 L Current Medications Current Medications Acetaminophen (Tylenol Tab) 650 mg Q4HP PRN PO PAIN Last administered on 03/26/19at 22:44; Start 03/26/19 at 22:30; Stop 03/26/19 at 23:08; Status DC Acetaminophen (Tylenol Tab) 650 mg Q6HP PRN PO PAIN / FEVER Last administered on 03/13/19at 11:29; Start 03/13/19 at 05:00; Stop 03/13/19 at 16:20; Status DC Acetaminophen (Tylenol Tab) 650 mg Q6HP PRN PO PAIN / FEVER Last administered on 03/15/19 20:43; Start 03/15/19 at 20:30; Stop 03/16/19 at 10:22; Status DC Azithromycin 500 mg/IV Miscellaneous Supplies 1 each/ Dextrose 255 ml @ 255 mls/hr Q24H IV Last administered on 03/18/19 01:54; Start 03/13/19 at 02:00; Stop 03/18/19 at 13:16; Status DC Calcium Carbonate (Tums) 500 mg BID PRN PO INDIGESTION Last administered on 03/15/19 19:51; Start 03/13/19 at 18:15 Ceftriaxone Sodium 1 gm/ Dextrose 50 ml @ 100 mls/hr Q24H IV Last administered on 03/18/19 04:33; Start 03/13/19 at 04:00; Stop 03/18/19 at 13:16; Status DC Docusate Sodium (Colace) 100 mg BIDP PRN PO CONSTIPATION; Start 03/14/19 at 19:15 Enoxaparin Sodium (Lovenox) 40 mg DAILY SC ; Start 03/13/19 at 09:00; Stop 03/20/19 at 14:03; Status DC Gabapentin (Neurontin) 100 mg TID PRN PO pain Last administered on 03/28/19 09:20; Start 03/27/19 at 12:30 Heparin Sodium (Heparin (Flush)) 200 units ASDIRECTED PRN IV SEE LABEL COMMENTS Last administered on 03/25/19at 19:38; Start 03/19/19 at 18:15 Heparin Sodium (Heparin (Flush)) 200 units PICC IV Last administered on 03/27/19at 18:43; Start 03/20/19 at 06:00 Home Med (Med Rec Complete!) ASDIRECTED XX ; Start 03/12/19 at 22:15; Stop 03/12/19 at 22:15; Status DC Ibuprofen (Advil) 600 mg Q6HP PRN PO fever and pain Last administered on 03/15/19 12:02; Start 03/14/19 at 17:00; Stop 03/15/19 at 13:25; Status DC Ketorolac Tromethamine (ToRADol) 10 mg Q6HP PRN PO PAIN Last administered on 03/26/19 17:19; Start 03/21/19 at 22:00; Stop 03/26/19 at 21:59; Status DC Ketorolac Tromethamine (ToRADol) 10 mg Q6HP PRN PO PAIN Last administered on 03/19/19 21:09; Start 03/18/19 at 15:45; Stop 03/20/19 at 14:00; Status DC Ketorolac Tromethamine (ToRADol) 15 mg Q6HP PRN IV PAIN Last administered on 03/18/19 14:46; Start 03/15/19 at 13:30; Stop 03/18/19 at 15:45; Status DC Ketorolac Tromethamine (ToRADol) 30 mg Q6H IV Last administered on 03/21/19 11:32; Start 03/21/19 at 00:00; Stop 03/21/19 at 14:21; Status DC Lactated Ringer's 1,000 ml @ 100 mls/hr Q10H IV Last administered on 03/28/19at 08:31; Start 03/27/19 at 22:30 Lactobacillus Acidophilus (Bacid) 1 ea BIDWM PO Last administered on 03/28/19 08:30; Start 03/19/19 at 12:30 Methadone HCl (Dolophine) 2.5 mg QHS PO Last administered on 03/24/19 20:31; Start 03/22/19 at 21:00; Stop 03/24/19 at 21:01; Status DC Methadone HCl (Dolophine) 5 mg QHS PO Last administered on 03/21/19at 19:44; Start 03/18/19 at 21:00; Stop 03/22/19 at 10:04; Status DC Methadone HCl (Dolophine) 7.5 mg QHS PO Last administered on 03/17/19 22:05; Start 03/16/19 at 21:00; Stop 03/18/19 at 13:24; Status DC Methadone HCl (Dolophine) 10 mg QHS PO ; Start 03/15/19 at 21:00; Stop 03/15/19 at 21:00; Status DC Methadone HCl (Dolophine) 10 mg QHS PO ; Start 03/16/19 at 21:00; Stop 03/16/19 at 21:00; Status DC Methadone HCl (Dolophine) 15 mg DAILY PO Last administered on 03/15/19at 08:03; Start 03/14/19 at 09:00; Stop 03/15/19 at 14:09; Status DC Morphine Sulfate (Morphine Sulfate Inj) 1 mg Q4HP PRN IV severe pain; Start 03/13/19 at 20:15; Stop 03/15/19 at 13:17; Status DC Morphine Sulfate (Morphine Sulfate Inj) 2 mg Q4HP PRN IV severe pain; Start 03/13/19 at 18:00; Stop 03/13/19 at 20:14; Status DC Multivitamins (Theragram-M) 1 tab DAILY PO Last administered on 03/28/19at 08:30; Start 03/19/19 at 11:00 Nicotine (Nicoderm Cq 14mg) 1 patch DAILY TD Last administered on 03/28/19at 08:31; Start 03/15/19 at 09:00 Ondansetron HCl (ZOFRAN INJection) 4 mg Q6HP PRN IV NAUSEA OR VOMITING Last administered on 03/13/19at 03:16; Start 03/13/19 at 03:15; Stop 03/13/19 at 20:12; Status DC Oxycodone HCl (Roxicodone, Oxyir) 5 mg Q4HP PRN PO PAIN; Start 03/13/19 at 02:45; Stop 03/13/19 at 03:00; Status DC Oxycodone HCl (Roxicodone, Oxyir) 10 mg Q4HP PRN PO SEVERE PAIN (PS 8-10); Sta rt 03/13/19 at 02:45; Stop 03/13/19 at 03:00; Status DC Sertraline HCl (Zoloft) 25 mg DAILY PO Last administered on 03/28/19at 08:30; Start 03/16/19 at 11:45 Sodium Chloride 1,000 ml @ 75 mls/hr [id number] IV Last administered on 03/15/19at 04:09; Start 03/12/19 at 23:30; Stop 03/15/19 at 14:07; Status DC Sodium Chloride (Saline Lock Flush) 10 ml ASDIRECTED PRN IV SEE LABEL COMMENTS Last administered on 03/27/19at 21:28; Start 03/19/19 at 18:15 Sodium Chloride (Saline Lock Flush) 10 ml PICC IV Last administered on 03/28/19at 05:56; Start 03/20/19 at 06:00 Tramadol HCl (Ultram) 50 mg Q8HP PRN PO MODERATE PAIN (PS 5-7); Start 03/16/19 at 18:30; Status Cancel Vancomycin HCl 750 mg/IV Miscellaneous Supplies 1 each/ Dextrose 275 ml @ 275 mls/hr Q6H IV Last administered on 03/20/19at 14:31; Start 03/20/19 at 14:00; Stop 03/20/19 at 16:26; Status DC Vancomycin HCl 1000 mg/IV Miscellaneous Supplies 1 each/ Dextrose 270 ml @ 270 mls/hr Q6H IV Last administered on 03/14/19at 05:37; Start 03/14/19 at 06:00; Stop 03/14/19 at 09:46; Status DC Vancomycin HCl 1000 mg/IV Miscellaneous Supplies 1 each/ Dextrose 270 ml @ 270 mls/hr Q6H IV Last administered on 03/20/19at 06:03; Start 03/14/19 at 12:00; Stop 03/20/19 at 11:58; Status DC Vancomycin HCl 1000 mg/IV Miscellaneous Supplies 1 each/ Dextrose 270 ml @ 270 mls/hr Q8H IV Last administered on 03/13/19at 22:38; Start 03/13/19 at 06:00; Stop 03/13/19 at 23:59; Status DC Vancomycin HCl 1000 mg/IV Miscellaneous Supplies 1 each/ Dextrose 270 ml @ 270 mls/hr Q8H IV Last administered on 03/28/19at 03:43; Start 03/20/19 at 20:00 Allergies Coded Allergies: No Known Allergies (Unverified , 06/03/17) MÓNICA PENA DO Mar 28, 2019 10:43
--- NOTE | 2019-03-28 11:32 | REP ---
CHEST X-RAY: Two views. HISTORY: Septic emboli. Comparison chest x-ray March 12, 2019. FINDINGS: There is hazy pleural opacity in the right base posteromedially with blunting of the posterior pleural angle consistent with small right pleural effusion. This is seen on the March 12, [address] No definite infiltrate is seen on the right. There are two hazy pleural-based nodular opacities in the left lung zone, which corresponds to two other peripheral nodules seen on the recent chest CT. They are unchanged in size from March 12, 2019. No new pulmonary nodule is appreciated. IMPRESSION: Nodular opacities persist in the left upper lung zone region unchanged from March 12, 2019. Small right pleural effusion is seen. A right-sided PICC line is noted. No new infiltrate. Electronically Signed by Remy Escamilla MD 03/28/2019 11:49 A
[2019-03-28 14:00] VITALS: BP 104/56
[2019-03-28] MEDS ORDERED: LEVA750T7 PO (14:47)
[2019-03-28] MEDS ORDERED: NICO14PA TD (14:47)
[2019-03-28] MEDS ORDERED: RIFA30CA PO (14:47)
[2019-03-28] MEDS ORDERED: RISATAB3 PO (14:47)
[2019-03-28] MEDS ORDERED: GABA-1171 PO (14:47)
[2019-03-28] MEDS ORDERED: SERT25TA88 PO (14:47)
--- NOTE | 2019-03-28 22:33 | DS.PDOC ---
Discharge Summary General Date of Admission Mar 12, 2019 at 22:58 Date of Discharge 03/28/19 Attending Physician: JENNIFER MORENO DO Specialist/Consultants Involve Dr Negron, Dr Banda, Dr Bryan Discharge Summary PROCEDURES PERFORMED DURING STAY: PICC LINE PLACED 03/19/19 BRITTANY 03/27/19: no vegetations BRITTANY 03/12/19: suspicious for vegetation ADMITTING DIAGNOSES: 1. Pneumonia: 2. Hypovolemic hyponatremia 3. Abnormal liver function tests: 4. Anemia: 5.Suicidal ideation: 6. 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 5) Polysubstance abuse 6) hepatitis C 7) Anxiety. COMPLICATIONS/CHIEF COMPLAINT: Endocarditis. HISTORY OF PRESENT ILLNESS: 28-year-old female supplemented IV drug abuser came to ED having fevers and chest pressure and pain for the last several days associated with some cough. See H&P for details HOSPITAL COURSE: patient admitted and placed on vanc and ceftriaxone for suspected pneumonia and vegetations given her history of IVDA. Blood cultures were positive for MRSA bacteremia. She was found to have [place] valve tricuspid valve endocarditis due to drug abuse with garcia spots and retinal hemorrhages, ID and opthomology consulted. She was continued on vancomycin IV and picc line placed. She completed 17 days of IV Vanc and repeat BRITTANY showed resolution of vegetations. ID recommended discharging patient home on levaquin and rifampin for 2 weeks. Patient was seen by psychiatry because of suicidal ideation and cleared. She had elevated LFT which were determined to be from hepatitis C. She will need to establish with a PCP (residency clinic) and be referred to [facility] for hepatitis C treatmetn as outpatient. Patient states she has decided to stop IVDA but declines inpatient program. She was initially placed on methadone as recommended by psychiatry but patient requested rapid taper off medication and did not want any further opioids. Her "pain" and anxiety with drug ideation/fixation was treated with gabapentin, zoloft and pateint states feels improved. She is being discharged in stable and improved condition DISCHARGE MEDICATIONS: Please see below. ALLERGIES: Please see below. PHYSICAL EXAMINATION ON DISCHARGE: VITAL SIGNS: Please see below. General:pleasant NAD AAOx3 HRRR LCTA LABORATORY DATA: Please see below. CT chest with patchy areas of infiltrate and focal consolidation. BRITTANY ECHO 03/27/19 CONCLUSIONS: 1. Normal transesophageal echocardiogram. 2. Presence of a PICC line with the tip at the junction of the superior vena cava with the right atrium. 3. No vegetations. BRITTANY ECHO 03/12/19 Appears to be localized thickening attached to the anterior or posterior tricuspid valve leaflets with associated mild - moderate insufficiency johnson spicious for a vegetation. PROGNOSIS: guarded as patient may lapse into drug abuse again. ACTIVITY: as tolerated. DIET: regular as tolerated DISCHARGE PLAN: discontinue PICC and discharge home DISCHARGE INSTRUCTIONS: 1. Follow up with Dr Bryan for eye exam in 2-3 days 2. Follow up with resident [facility] program in 2 week to recheck endocarditis 3. Follow up with Dr Negron, Infectious disease in 2-3 weeks 4. take oral antibiotics as prescribe for 2 weeks 5. Will need outpatient follow up for treatment of hepatitis C (to be arranged by PCP) DISCHARGE CONDITION: stable TIME SPENT ON DISCHARGE: 40 minutes. Vital Signs/I&Os Vital Signs Date Time Temp Pulse Resp B/P (MAP) Pulse Ox O2 Delivery O2 Flow Rate FiO2 03/28/19 10:00 97.5 93 16 120/79 (93) 100 I&O- Last 24 Hours up to 6 AM 03/28/19 06:00 Intake Total 2620 ml Output Total 0 ml Balance 2620 ml Laboratory Data Labs 24H Laboratory Tests 2 03/28/19 06:06: Nucleated Red Blood Cells % (auto) 0.0, Anion Gap 3L, Glomerular Filtration Rate > 60.0, Blood Urea Nitrogen 11, Creatinine 0.68, Sodium Level 140, Potassium Level 3.9, Chloride Level 107, Carbon Dioxide Level 30, Calcium Level 8.2L, Aspartate Amino Transf (AST/SGOT) 33, Alanine Aminotransferase (ALT/SGPT) 65, Alkaline Phosphatase 76, Total Bilirubin 0.2, Total Protein 7.5, Albumin 2.3L, C-Reactive Protein, Quantitative 2.26H, Albumin/Globulin Ratio 0.44L 03/28/19 06:07: Erythrocyte Sedimentation Rate 128H CBC/BMP Laboratory Tests 03/28/19 06:06 Red Blood Count 2.89 L, Mean Corpuscular Volume 95.2, Mean Corpuscular Hemoglobin 30.1, Mean Corpuscular Hemoglobin Concent 31.6 L, Red Cell Distribution Width 12.7, Calcium Level 8.2 L, Aspartate Amino Transf (AST/SGOT) 33, Alanine Aminotransferase (ALT/SGPT) 65, Alkaline Phosphatase 76, Total Bilirubin 0.2, Total Protein 7.5, Albumin 2.3 L Discharge Medications Scheduled L.acidoph/L.bulg/B.bif/S.therm (Serena-Bid Caplet) 1 Each Tablet, 1 EA PO BIDWM Levofloxacin (Levaquin) 750 Mg Tablet, 750 MG PO DAILY Nicotine (Nicotine Patch) 14 Mg Patch.td24, 1 PATCH TD DAILY Rifampin (Rifampin) 300 Mg Capsule, 300 MG PO BID Sertraline HCl (Sertraline HCl) 25 Mg Tablet, 25 MG PO DAILY Scheduled PRN Gabapentin (Gabapentin) 100 Mg Capsule, 100 MG PO TID PRN for pain Allergies Coded Allergies: No Known Allergies (Unverified , 06/03/17) JENNIFER MORENO DO Mar 28, 2019 14:51
== END 2019-03-28 18:00 | disposition home or self-care (01) | DRG 193 ==
LOC: M ED 17:27 → EEVIPCON 17:27 → M ED INP 22:58 → EEVIPCON 22:58 → M PCU 03-13 00:20 → M MSPAV 03-14 14:31
PROVIDERS: ADMIT Internal Medicine; ATTEND Family Medicine
PROC: 02HV33Z Insertion of Infusion Device into Superior Vena Cava, Percutaneous Approach (ICD-10-PCS; principal; 2019-03-19)
PROC: B246ZZ4 Ultrasonography of Right and Left Heart, Transesophageal (ICD-10-PCS; 2019-03-27)
DX: I33.0 Acute and subacute infective endocarditis (principal); I76 Septic arterial embolism; J18.9 Pneumonia, unspecified organism; E87.1 Hypo-osmolality and hyponatremia; F15.20 Other stimulant dependence, uncomplicated; H35.62 Retinal hemorrhage, left eye; R94.5 Abnormal results of liver function studies; D64.9 Anemia, unspecified; F17.210 Nicotine dependence, cigarettes, uncomplicated; F11.23 Opioid dependence with withdrawal; F41.1 Generalized anxiety disorder; B19.20 Unspecified viral hepatitis C without hepatic coma; B95.62 Methicillin resistant Staphylococcus aureus infection as the cause of diseases classified elsewhere; H53.8 Other visual disturbances

== ENCOUNTER → 2019-04-06 | Outpatient (CLI) | payer MEDICAID ==
[~2019-04-06] MED LIST changes: +GABA-1171 PO; +LEVA750T7 PO; +NICO14PA TD; +RIFA30CA PO; +RISATAB3 PO; +SERT25TA88 PO
--- NOTE | 2019-04-06 17:24 | REP ---
CHEST, TWO VIEWS: Two views of the chest were performed. Comparison 03/28/2019. There is decreased size of a right pleural effusion. Peripheral nodular opacity in the left lung at the level of the hilum is unchanged. The heart and mediastinum are unchanged. Previously noted PICC line has been removed. IMPRESSION: Decreased size of right pleural effusion with mild residual. Lung sanchez are otherwise unchanged. Electronically Signed by Luis Marte MD 04/10/2019 05:42 P
== END ==
LOC: M LRY 15:59
PROVIDERS: ATTEND Family Medicine
DX: I33.0 Acute and subacute infective endocarditis (principal)

== ENCOUNTER → 2019-04-06 | Outpatient (REF) | payer MEDICAID ==
[2019-04-12 14:08] LABS: HEPATITIS C QUANTITATION 100570 IU/mL (.); HEPATITIS C VIRUS GENOTYPE 3 (.)
== END ==
LOC: M SFHCLERA 15:54
PROVIDERS: ATTEND Family Medicine
DX: B19.20 Unspecified viral hepatitis C without hepatic coma (principal)

== ENCOUNTER → 2019-07-10 | Outpatient (REF) | payer MEDICAID, OTHER ==
[~2019-07-10] MED LIST changes: +SERT25TA21 PO; -SERT25TA88 PO
[2019-07-10 13:00] LABS: BASO % 0.6 % (0.0-1.0); EOS # 0.1 10^3/uL (0.0-0.5); EOS % 1.8 % (0.0-3.0); HEMOGLOBIN 14.1 g/dl (12.0-15.5); LYMPH # 3.4 10^3/uL (1.5-5.0); LYMPH % 51.1 % (24.0-44.0); MEAN CORPUSCULAR HEMOGLOBIN 30.3 pg (27.0-33.0); MEAN CORPUSCULAR HGB CONC 32.8 g/dl (32.0-36.5); MEAN CORPUSCULAR VOLUME 92.5 fl (80.0-96.0); MONO # 0.7 10^3/uL (0.0-0.8); MONO % 10.4 % (0.0-5.0); NEUTROPHILS # 2.4 10^3/uL (1.5-8.5); NEUTROPHILS % 36.1 % (36.0-66.0); PLATELET COUNT, AUTOMATED 270 10^3/uL (150-450); RED BLOOD COUNT 4.65 10^6/uL (4.00-5.40); WHITE BLOOD COUNT 6.6 10^3/uL (4.0-10.0)
[2019-07-10 13:19] LABS: ALBUMIN 3.9 GM/DL (3.2-5.2); ALT/SGPT 24 U/L (12-78); BILIRUBIN,DIRECT < 0.1 MG/DL (0.0-0.2); BILIRUBIN,TOTAL 0.5 MG/DL (0.2-1.0); TOTAL PROTEIN 7.7 GM/DL (6.4-8.2)
[2019-07-13 14:09] LABS: HEPATITIS C QUANTITATION HCV Not Detected IU/mL (.)
== END ==
LOC: M LABDRAW1 11:45
PROVIDERS: ATTEND Internal Medicine Infectious Disease
DX: B18.2 Chronic viral hepatitis C (principal)

== ENCOUNTER → 2021-06-25 | Outpatient (CLI) | payer OTHER, SELFPAY ==
--- NOTE | 2021-06-25 11:33 | REP ---
INDICATION: COUGH, UNSPECIFIED COMPARISON: 04/06/2019 TECHNIQUE: PA and lateral. FINDINGS: The mediastinum and cardiac silhouette are normal. The lung sanchez are clear and without acute consolidation, effusion, or pneumothorax. The skeletal structures are intact and normal. IMPRESSION: No acute cardiopulmonary process. <Electronically signed by Fabio Crum > 06/25/21 1125
== END ==
LOC: M RAD 11:04
PROVIDERS: ATTEND Student in an Organized Health Care Education/Training Program
DX: R05.9 Cough, unspecified (principal)

== ENCOUNTER 2024-03-07 16:50 | Outpatient (CLI) | payer OTHER ==
[~2024-03-07] VITALS: Ht 170.2 cm; Wt 63.7 kg
[2024-03-07] MEDS ORDERED: PRENTAB9 PO (17:18)
[2024-03-07] MEDS ORDERED: FAMO20TA5 PO (17:18)
[2024-03-07] MEDS ORDERED: ONDA-83 PO (17:18)
[2024-03-07] MEDS ORDERED: METO10TA3 (17:18)
[2024-03-07] MEDS ORDERED: HOME MED LIST COMPLETE! XX SCH (17:20)
[2024-03-07 17:24] VITALS: BP 133/85
[2024-03-07 19:17] LABS: HEMATOCRIT 26.7 % (36.0-47.0); HEMOGLOBIN 9.1 g/dl (12.0-15.5); MEAN CORPUSCULAR HGB CONC 34.1 g/dl (32.0-36.5); MEAN CORPUSCULAR VOLUME 90.8 fl (80.0-96.0); PLATELET COUNT, AUTOMATED 314 10^3/uL (150-450); RED BLOOD COUNT 2.94 10^6/uL (4.00-5.40); WHITE BLOOD COUNT 7.1 10^3/uL (4.0-10.0)
[2024-03-07 19:31] LABS: TOTAL PROTEIN,RANDOM URINE 20.4 MG/DL (0.0-14.0)
[2024-03-07 19:35] LABS: CREATININE,RANDOM URINE 121.4 MG/DL
[2024-03-07 19:45] LABS: LDH LACTATE DEHYDROGENASE 337 U/L (120-246)
[2024-03-07 19:46] LABS: ALKALINE PHOSPHATASE 150 U/L (46-116); ALT/SGPT 44 U/L (7.0-40); ALT/SGPT 45 U/L (7.0-40); AST/SGOT 63 U/L (<34); AST/SGOT 64 U/L (<34); BILIRUBIN,TOTAL 0.3 MG/DL (0.3-1.2); BLOOD UREA NITROGEN 16 MG/DL (9-23); CALCIUM LEVEL 8.2 MG/DL (8.5-10.1); CARBON DIOXIDE LEVEL 25 MMOL/L (20-31); CHLORIDE LEVEL 107 MMOL/L (98-107); CREATININE FOR GFR 0.68 MG/DL (0.55-1.30); CREATININE FOR GFR 0.69 MG/DL (0.55-1.30); GLOMERULAR FILTRATION RATE > 60.0 (>60); GLUCOSE, FASTING 91 MG/DL (60-100); POTASSIUM SERUM 4.3 MMOL/L (3.5-5.1); SODIUM LEVEL 137 MMOL/L (136-145); TOTAL PROTEIN 5.2 G/DL (5.7-8.2)
[2024-03-07 20:16] VITALS: BP 143/74
[2024-03-07 21:07] VITALS: BP 130/85
[2024-03-07] MEDS: BETAMETHASONE SOLUSPAN 6MG/ML 5ML VIAL IM SCH (21:20)
[2024-03-07 22:26] LABS: BASO % 0.4 % (0.0-1.0); EOS % 0.3 % (0.0-3.0); LYMPH # 2.3 10^3/uL (1.5-5.0); LYMPH % 32.3 % (24.0-44.0); MONO # 0.6 10^3/uL (0.0-0.8); NEUTROPHILS # 4.2 10^3/uL (1.5-8.5); NEUTROPHILS % 58.6 % (36.0-66.0)
[2024-03-07 22:32] LABS: PLATELET ESTIMATE NORMAL (NORMAL)
[2024-03-07 22:54] LABS: HEPATITIS C VIRUS ABY INDEX 8.82 INDEX (<0.8)
[2024-03-09 13:12] LABS: HCV RNA QUANTITATION <15 NOT DETECTED IU/mL (NOT DETECTED); HCV RNA log10 <1.18 NOT DETECTED Log IU/mL (NOT DETECTED)
== END 2024-03-07 21:25 | disposition home or self-care (01) ==
LOC: M LDO 16:50 → MERGE 16:50 → M LDO 21:25
PROVIDERS: ATTEND Advanced Practice Midwife
DX: O12.03 Gestational edema, third trimester (principal); O36.5930 Maternal care for other known or suspected poor fetal growth, third trimester, not applicable or unspecified; O09.33 Supervision of pregnancy with insufficient antenatal care, third trimester; O98.413 Viral hepatitis complicating pregnancy, third trimester; O99.333 Smoking (tobacco) complicating pregnancy, third trimester; O99.343 Other mental disorders complicating pregnancy, third trimester; B18.2 Chronic viral hepatitis C; F17.210 Nicotine dependence, cigarettes, uncomplicated; F41.1 Generalized anxiety disorder; Z3A.36 36 weeks gestation of pregnancy
CPT/HCPCS: 36415; 59025; 76811; 76819; 76820; 80053; 82247; 82570; 83615; 84156; 84450; 84460; 84550; 85027; 86780; 86803; 87340; 87522; 93970; 96372; G0463; J0702

== ENCOUNTER 2024-03-09 01:15 | Outpatient (CLI) | payer OTHER ==
[~2024-03-09] VITALS: Ht 170.2 cm; Wt 63.4 kg
[~2024-03-09 01:15] MED LIST changes: +FAMO20TA5 PO; +METO10TA3; +ONDA-83 PO; +PRENTAB9 PO
[2024-03-09] MEDS: BETAMETHASONE SOLUSPAN 6MG/ML 5ML VIAL IM STA (01:37)
== END 2024-03-09 01:58 | disposition home or self-care (01) ==
LOC: MERGE 01:15 → M LDO 01:15
PROVIDERS: ATTEND Obstetrics & Gynecology
DX: O13.3 Gestational [pregnancy-induced] hypertension without significant proteinuria, third trimester (principal); Z3A.36 36 weeks gestation of pregnancy
CPT/HCPCS: 59025; 96372; G0463; J0702

== ENCOUNTER 2024-03-19 06:39 | Inpatient (IN) | payer OTHER, MEDICAID ==
[2024-03-19] VITALS (10 sets, daily range): BP systolic 121–182; BP diastolic 78–85; TEMP 97.2; O2SAT 97–100
[~2024-03-19] VITALS: Ht 170.2 cm; Wt 61.3 kg
[2024-03-19] MEDS ORDERED: PHENYLephrine 500MCG 5ML (100MCG/ML) SYRINGE As Ordered ONE (07:09)
[2024-03-19] MEDS ORDERED: ePHEDrine SULFATE 25 MG/5 ML(5MG/ML) SYRINGE As Ordered ONE (07:09)
[2024-03-19] MEDS ORDERED: OXYTOCIN 30UNITS IN 0.9% NaCl 500ML IV BAG As Ordered ONE (07:10)
[2024-03-19] MEDS ORDERED: MORPHINE PRES-FREE INJ 10 MG/10 ML VIAL As Ordered ONE (07:10)
[2024-03-19] MEDS ORDERED: LR 1,000 ML IV SCH (07:15)
[2024-03-19] MEDS ORDERED: OXYTOCIN DRIP 30 UNITS in IV 1 EA IV PRN (07:15)
[2024-03-19] MEDS: LACTATED RINGER'S 1000 ML IV STA (07:21)
[2024-03-19 07:28] LABS: HEMATOCRIT 32.8 % (36.0-47.0); HEMOGLOBIN 10.4 g/dl (12.0-15.5); MEAN CORPUSCULAR HEMOGLOBIN 28.9 pg (27.0-33.0); MEAN CORPUSCULAR HGB CONC 31.7 g/dl (32.0-36.5); MEAN CORPUSCULAR VOLUME 91.1 fl (80.0-96.0); PLATELET COUNT, AUTOMATED 273 10^3/uL (150-450); WHITE BLOOD COUNT 10.8 10^3/uL (4.0-10.0)
[2024-03-19] MEDS: BICITRA 30ML SOLN UDC PO ONE (07:35)
[2024-03-19] MEDS: ceFAZolin SOD 2 GM in IV 1 EA IV ONE (07:35)
[2024-03-19] MEDS ORDERED: SIMETHICONE 80MG CHEW TAB PO PRN (08:20)
[2024-03-19] MEDS ORDERED: KETOROLAC 60MG 2ML VIAL As Ordered ONE (08:41)
[2024-03-19] MEDS ORDERED: ONDANSETRON 4MG 2ML VIAL As Ordered ONE (08:41)
[2024-03-19] MEDS: PRENATAL VITAMINS CHEWABLE TABLET PO SCH (09:00)
[2024-03-19] MEDS ORDERED: NALOXONE INJ 0.4MG/1ML VIAL IV PRN ×2 (09:20)
[2024-03-19] MEDS ORDERED: METOCLOPRAMIDE INJ 10MG/2ML VIAL IV PRN (09:20)
[2024-03-19] MEDS: SLF 3 ML SYR IV SCH (09:20)
[2024-03-19] MEDS ORDERED: diphenhydrAMINE 50MG/ML VIAL IV PRN (09:20)
[2024-03-19] MEDS ORDERED: **NOTE PATIENT COMMENT** MISC XX SCH (09:20)
[2024-03-19] MEDS ORDERED: oxyCODONE 5MG TAB PO PRN (09:20)
[2024-03-19] MEDS ORDERED: ONDANSETRON 4MG 2ML VIAL IV PRN (09:20)
[2024-03-19] MEDS ORDERED: MEPERIDINE 25 MG/ML 1ML VIAL IV PRN (09:20)
[2024-03-19] MEDS ORDERED: fentaNYL 100 MCG/2 ML INJECTION IV PRN (09:20)
[2024-03-19] MEDS: OXYTOCIN DRIP 30 UNITS in IV 1 EA IV SCH (09:26)
[2024-03-19] MEDS: LR 1,000 ML IV SCH (09:26)
[2024-03-19] MEDS ORDERED: HYDROMORPHONE HCL 0.5 MG/ 0.5 ML SYRINGE As Ordered ONE (09:45)
[2024-03-19] MEDS: HYDROMORPHONE HCL 0.5 MG/ 0.5 ML SYRINGE IV PRN (09:49)
[2024-03-19] MEDS: KETOROLAC 30 MG/ML 1ML VIAL IV SCH (14:08)
[2024-03-19] MEDS: DOCUSATE SODIUM 100MG CAPSULE PO PRN (14:09)
[2024-03-19] MEDS: PERCOCET 5MG/325MG TAB PO PRN (14:09)
[2024-03-19] MEDS: NICOTINE 7 MG/24 HR TRANSDERMAL TD ONE (17:58)
[2024-03-20 02:00] VITALS: BP 138/91; O2SAT 98
[2024-03-20 06:00] VITALS: BP 142/86; O2SAT 97
[2024-03-20 06:26] LABS: HEMATOCRIT 29.6 % (36.0-47.0); HEMOGLOBIN 9.8 g/dl (12.0-15.5); MEAN CORPUSCULAR HEMOGLOBIN 30.3 pg (27.0-33.0); MEAN CORPUSCULAR HGB CONC 33.1 g/dl (32.0-36.5); MEAN CORPUSCULAR VOLUME 91.6 fl (80.0-96.0); PLATELET COUNT, AUTOMATED 286 10^3/uL (150-450); RED BLOOD COUNT 3.23 10^6/uL (4.00-5.40); WHITE BLOOD COUNT 10.1 10^3/uL (4.0-10.0)
[2024-03-20 10:58] VITALS: BP 130/80; O2SAT 98
[2024-03-20] MEDS: IBUPROFEN 800 MG TAB PO SCH (11:00)
[2024-03-20] MEDS: RHO(D) IMMUNE GLOBULIN/MALTOSE 500MCG(2500IU)/2.2ML VIAL (WINRHO) IM SCH (13:15)
[2024-03-20 14:00] VITALS: BP 134/97
[2024-03-20 18:00] VITALS: BP 140/91
[2024-03-20 22:00] VITALS: BP 151/91; O2SAT 99
[2024-03-21 02:00] VITALS: BP 138/76; O2SAT 100
[2024-03-21 06:00] VITALS: BP 135/78; O2SAT 100
[2024-03-21] MEDS ORDERED: IBUP80TA PO (07:33)
[2024-03-21] MEDS ORDERED: OXYC1TAB23 PO (07:33)
[2024-03-21] MEDS ORDERED: COLA100C5 PO (07:33)
[2024-03-21] MEDS: MEASLES,MUMPS,RUBELLA VACCINE INJ (MMR-II) SC.IMMUN ONE (09:00)
[2024-03-21 17:50] VITALS: BP 166/95; O2SAT 100
[2024-03-21 18:05] VITALS: BP 148/101
[2024-03-22 05:56] VITALS: BP 144/96; O2SAT 98
== END 2024-03-22 13:37 | disposition home or self-care (01) | DRG 540 ==
LOC: M LDI 06:39 → M OBS 10:18
PROVIDERS: ADMIT Specialist; ATTEND Specialist
PROC: 10D00Z1 Extraction of Products of Conception, Low, Open Approach (ICD-10-PCS; principal; 2024-03-19 07:30)
DX: O36.5930 Maternal care for other known or suspected poor fetal growth, third trimester, not applicable or unspecified (principal); O13.3 Gestational [pregnancy-induced] hypertension without significant proteinuria, third trimester; Z3A.38 38 weeks gestation of pregnancy; Z37.0 Single live birth